=== PATIENT | female | born 1950 | race Caucasian/White ===

== ENCOUNTER 2020-12-09 08:00 | Outpatient (CLI) | payer MEDICARE, MEDICAID ==
[2020-12-17] MEDS ORDERED: LIDOcaine 2% 5ml jelly ONE (09:30)
[2020-12-17 10:58] LABS: BASOPHILS % (AUTO) 0.6 % (0-1); EOSINOPHILS # (AUTO) 0.1 X10'3 (0-0.9); EOSINOPHILS % (AUTO) 0.9 % (0-6); HEMATOCRIT 37.2 % (35.0-45.0); HEMOGLOBIN 12.3 g/dl (12.0-16.0); LYMPHOCYTES # (AUTO) 1.9 X10'3 (1.1-4.8); LYMPHOCYTES % (AUTO) 23.9 % (21-51); MEAN CORPUSCULAR HEMOGLOBIN 27.9 PG (27.0-31.0); MEAN CORPUSCULAR HGB CONC 33.1 g/dL (33.0-36.5); MEAN CORPUSCULAR VOLUME 84.3 FL (78-98); MEAN PLATELET VOLUME 7.2 FL (7.4-10.4); MONOCYTES # (AUTO) 0.5 X10'3 (0-0.9); MONOCYTES % (AUTO) 6.9 % (2-12); NEUTROPHILS # (AUTO) 5.4 X10'3 (1.8-7.7); NEUTROPHILS % (AUTO) 67.7 % (42-75); PLATELET COUNT 256 X10'3 (140-440); RED BLOOD COUNT 4.42 X10'6 (4.20-5.60); WHITE BLOOD COUNT 7.9 X10'3 (4.5-11.0)
[2020-12-17 11:09] LABS: HEMOGLOBIN A1C 6.7 % (4.5-6.2)
[2020-12-17 11:10] LABS: ALANINE AMINOTRANSFERASE 23 U/L (12-78); ALBUMIN 3.4 G/DL (3.4-5.0); ALBUMIN/GLOBULIN RATIO 0.7 (1.1-1.5); ALKALINE PHOSPHATASE 98 IU/L (46-116); ANION GAP 7 (8-16); ASPARTATE AMINO TRANSFERASE 23 U/L (10-37); BILIRUBIN,TOTAL 0.6 MG/DL (0.1-1.0); BLOOD UREA NITROGEN 35 MG/DL (7-18); BUN/CREATININE RATIO 26.7 (6.6-38.0); C-REACTIVE PROTEIN 2.88 MG/DL (0.0-0.5); CALCIUM 9.1 MG/DL (8.5-10.1); CHLORIDE 104 MMOL/L (99-107); CREATININE 1.31 MG/DL (0.40-0.90); GLUCOSE 123 MG/DL (70-104); POTASSIUM 5.5 MMOL/L (3.5-5.1); SODIUM 136 MMOL/L (135-145); TOTAL CARBON DIOXIDE 24.8 MMOL/L (24-32); TOTAL PROTEIN 8.1 G/DL (6.4-8.2); eGFR 40 ML/MIN
[2020-12-24] MEDS ORDERED: LIDOcaine 2% 5ml jelly ONE (08:47)
[2021-01-02] MEDS ORDERED: LIDOcaine 2% 5ml jelly ONE (09:46)
== END 2020-12-27 23:59 | disposition home or self-care (01) ==
LOC: WOUND CARE 08:00 → EDSTATUS 12-17 08:40 → WOUND CARE 12-27 23:59
PROVIDERS: ATTEND Nurse Practitioner
DX: E11.621 Type 2 diabetes mellitus with foot ulcer (principal); L89.893 Pressure ulcer of other site, stage 3; L97.515 Non-pressure chronic ulcer of other part of right foot with muscle involvement without evidence of necrosis; L97.521 Non-pressure chronic ulcer of other part of left foot limited to breakdown of skin; S91.105A Unspecified open wound of left lesser toe(s) without damage to nail, initial encounter; E11.65 Type 2 diabetes mellitus with hyperglycemia; L84 Corns and callosities; I10 Essential (primary) hypertension; E78.5 Hyperlipidemia, unspecified; M19.90 Unspecified osteoarthritis, unspecified site; E11.39 Type 2 diabetes mellitus with other diabetic ophthalmic complication; E11.36 Type 2 diabetes mellitus with diabetic cataract; H42 Glaucoma in diseases classified elsewhere; K21.9 Gastro-esophageal reflux disease without esophagitis; I87.2 Venous insufficiency (chronic) (peripheral); M10.9 Gout, unspecified; F32.9 Major depressive disorder, single episode, unspecified; Z86.718 Personal history of other venous thrombosis and embolism; Z87.891 Personal history of nicotine dependence; X58.XXXA Exposure to other specified factors, initial encounter; Y93.89 Activity, other specified; Y92.89 Other specified places as the place of occurrence of the external cause; Y99.8 Other external cause status
CPT/HCPCS: 11043; 15275; 36415; 73630; 80053; 82948; 83036; 85025; 85651; 86140; 87070; 87075; 87077; 87186; 97597; Q4196

== ENCOUNTER 2020-12-31 17:25 | Outpatient (CLI) | payer MEDICARE, MEDICAID ==
[2020-12-31 18:11] LABS: ALANINE AMINOTRANSFERASE 24 U/L (12-78); ALBUMIN 3.1 G/DL (3.4-5.0); ALBUMIN/GLOBULIN RATIO 0.8 (1.1-1.5); ALKALINE PHOSPHATASE 92 IU/L (46-116); ANION GAP 10 (8-16); ASPARTATE AMINO TRANSFERASE 23 U/L (10-37); BILIRUBIN,TOTAL 0.4 MG/DL (0.1-1.0); BLOOD UREA NITROGEN 36 MG/DL (7-18); BUN/CREATININE RATIO 27.7 (6.6-38.0); CHLORIDE 110 MMOL/L (99-107); GLUCOSE 81 MG/DL (70-104); POTASSIUM 5.8 MMOL/L (3.5-5.1); SODIUM 143 MMOL/L (135-145); TOTAL CARBON DIOXIDE 22.6 MMOL/L (24-32); eGFR 41 ML/MIN
== END 2020-12-31 23:59 | disposition home or self-care (01) ==
LOC: LAB SPEC 17:25
PROVIDERS: ATTEND Family Medicine
DX: N17.9 Acute kidney failure, unspecified (principal); E87.8 Other disorders of electrolyte and fluid balance, not elsewhere classified
CPT/HCPCS: 36415; 80053

== ENCOUNTER 2021-01-09 13:33 | Outpatient (CLI) | payer MEDICARE, MEDICAID ==
[2021-01-09] MEDS ORDERED: LIDOcaine 2% 5ml jelly ONE (14:15)
== END 2021-02-05 23:59 | disposition home or self-care (01) ==
LOC: WOUND CARE 13:33
PROVIDERS: ATTEND Nurse Practitioner
DX: E11.621 Type 2 diabetes mellitus with foot ulcer (principal); L89.893 Pressure ulcer of other site, stage 3; L89.890 Pressure ulcer of other site, unstageable; L97.512 Non-pressure chronic ulcer of other part of right foot with fat layer exposed; E11.65 Type 2 diabetes mellitus with hyperglycemia; E11.36 Type 2 diabetes mellitus with diabetic cataract; I10 Essential (primary) hypertension; I87.2 Venous insufficiency (chronic) (peripheral); E78.5 Hyperlipidemia, unspecified; H42 Glaucoma in diseases classified elsewhere; M19.90 Unspecified osteoarthritis, unspecified site; K21.9 Gastro-esophageal reflux disease without esophagitis; M10.9 Gout, unspecified; F32.9 Major depressive disorder, single episode, unspecified; Z86.718 Personal history of other venous thrombosis and embolism; Z90.710 Acquired absence of both cervix and uterus
CPT/HCPCS: 11042; 15275; Q4160

== ENCOUNTER 2021-01-29 18:49 | Outpatient (CLI) | payer MEDICARE, MEDICAID ==
[2021-01-29 19:31] LABS: BASOPHILS % (AUTO) 0.2 % (0-1); EOSINOPHILS % (AUTO) 0 % (0-6); HEMATOCRIT 36.3 % (35.0-45.0); HEMOGLOBIN 11.5 g/dl (12.0-16.0); LYMPHOCYTES % (AUTO) 10.1 % (21-51); MEAN CORPUSCULAR HEMOGLOBIN 27.1 PG (27.0-31.0); MEAN CORPUSCULAR HGB CONC 31.7 g/dL (33.0-36.5); MEAN CORPUSCULAR VOLUME 85.3 FL (78-98); MEAN PLATELET VOLUME 7.2 FL (7.4-10.4); MONOCYTES # (AUTO) 0.2 X10'3 (0-0.9); MONOCYTES % (AUTO) 2.1 % (2-12); NEUTROPHILS # (AUTO) 9.1 X10'3 (1.8-7.7); NEUTROPHILS % (AUTO) 87.6 % (42-75); PLATELET COUNT 401 X10'3 (140-440); RED BLOOD COUNT 4.25 X10'6 (4.20-5.60); WHITE BLOOD COUNT 10.3 X10'3 (4.5-11.0)
[2021-01-29 19:40] LABS: ALANINE AMINOTRANSFERASE 57 U/L (12-78); ALBUMIN/GLOBULIN RATIO 0.8 (1.1-1.5); ALKALINE PHOSPHATASE 125 IU/L (46-116); ANION GAP 11 (8-16); ASPARTATE AMINO TRANSFERASE 23 U/L (10-37); BILIRUBIN,TOTAL 0.3 MG/DL (0.1-1.0); BLOOD UREA NITROGEN 41 MG/DL (7-18); BUN/CREATININE RATIO 27.3 (6.6-38.0); C-REACTIVE PROTEIN 1.38 MG/DL (0.0-0.5); CALCIUM 9.3 MG/DL (8.5-10.1); CHLORIDE 106 MMOL/L (99-107); GLUCOSE 298 MG/DL (70-104); SODIUM 140 MMOL/L (135-145); TOTAL CARBON DIOXIDE 23.2 MMOL/L (24-32); VANCOMYCIN,TROUGH 17.2 UG/ML (6.0-14.0); eGFR 35 ML/MIN
== END 2021-01-29 23:59 | disposition home or self-care (01) ==
LOC: LAB 18:49
PROVIDERS: ATTEND Family Medicine
DX: A49.9 Bacterial infection, unspecified (principal)
CPT/HCPCS: 36415; 80053; 80202; 85025; 85651; 86140

== ENCOUNTER 2024-03-31 08:50 | Day surgery (SDC) | payer MEDICARE, MEDICAID ==
[2024-03-24 15:34] LABS: BILIRUBIN,URINE NEGATIVE (Neg); GLUCOSE, URINE 500 mg/dl (Neg); KETONES,URINE NEGATIVE (Neg); LEUKOCYTE ESTERASE ,URINE NEGATIVE (Neg); NITRITES, URINE NEGATIVE (Neg); OCCULT BLOOD,URINE NEGATIVE (Neg); PH,URINE 5.5 (4.8-8.0); PROTEIN,URINE NEGATIVE (Neg); UROBILINOGEN,URINE 0.2 E.U/dL (0.2-1.0)
[2024-03-24 15:37] LABS: BASOPHILS % (AUTO) 0.6 % (0-1); EOSINOPHILS # (AUTO) 0.2 X10'3 (0-0.9); EOSINOPHILS % (AUTO) 2.1 % (0-6); MEAN CORPUSCULAR HEMOGLOBIN 29.6 PG (27.0-31.0); MEAN CORPUSCULAR HGB CONC 32.7 g/dL (33.0-36.5); MEAN CORPUSCULAR VOLUME 90.4 FL (78-98); MEAN PLATELET VOLUME 7.3 FL (7.4-10.4); MONOCYTES # (AUTO) 0.5 X10'3 (0-0.9); MONOCYTES % (AUTO) 7.5 % (2-12); NEUTROPHILS # (AUTO) 4.4 X10'3 (1.8-7.7); NEUTROPHILS % (AUTO) 61.8 % (42-75); PRE OP HEMATOCRIT 37.9 % (35.0-45.0); PRE OP HEMOGLOBIN 12.4 g/dL (12.0-16.0); PRE OP PLATELET COUNT 326 X10'3 (140-440); PRE OP WHITE BLOOD COUNT 7.1 10'3 (4.8-10.8); RED BLOOD COUNT 4.19 X10'6 (4.20-5.60); RED CELL DISTRIBUTION WIDTH 14.8 % (11.5-14.5)
[2024-03-24 15:39] LABS: UA COLLECTION TYPE CLN CATCH MIDSTREAM
[2024-03-24 15:40] LABS: CLARITY,URINE Slightly Cloudy (Clear); COLOR,URINE AMBER (Yellow)
[2024-03-24 15:41] LABS: BACTERIA,URINE RARE /HPF (Neg); MUCUS STRANDS MODERATE /LPF (Neg); RBC,URINE 0-2 /HPF (0-2); SQUAMOUS EPITHELIAL CELL,UR FEW /LPF (FEW); WBC,URINE 0-4 /HPF (0-4)
[2024-03-24 15:42] LABS: HYALINE CASTS 0-3 /LPF (NEGATIVE)
[2024-03-24 15:46] LABS: ALBUMIN 3.2 G/DL (3.4-5.0); ALBUMIN/GLOBULIN RATIO 0.6 (1.1-1.5); ALKALINE PHOSPHATASE 100 IU/L (46-116); BLOOD UREA NITROGEN 51 MG/DL (7-18); BUN/CREATININE RATIO 26.3 (10.0-20.0); CALCIUM 9.8 MG/DL (8.5-10.1); CHLORIDE 100 MMOL/L (99-107); CREATININE 1.94 MG/DL (0.40-0.90); PRE OP ALT 26 U/L (30-65); PRE OP ANION GAP 10 (8-16); PRE OP AST 31 U/L (10-37); PRE OP BILIRUB, TOTAL 0.6 MG/DL (0.0-1.0); PRE OP POTASSIUM 5.1 MMOL/L (3.4-5.1); PRE OP SODIUM 134 MMOL/L (135-145); TOTAL CARBON DIOXIDE 24.4 MMOL/L (24-32); TOTAL PROTEIN 8.3 G/DL (6.4-8.2); eGFR 25 ML/MIN
[2024-03-24 15:49] LABS: PRE OP GLUCOSE 208 MG/DL (70-104)
[~2024-03-31] VITALS: Ht 154.9 cm; Wt 145.6 kg
[2024-03-31] VITALS (16 sets, daily range): BP systolic 112–136; BP diastolic 53–69; PULSE 59–68; RESP 7–18; TEMP 97.4; O2SAT 92–100
[2024-03-31] MEDS: DOCUMENT DATE & TIME OF BETA-BLOCKER PO ONE (06:00)
[~2024-03-31 08:50] MED LIST: ALBU18HF2 PO; AMOX-580 PO; ASPI-1265 PO; ATOR20TA66 PO; CETI10TA19 PO; CHOL20002 PO; CYCL-1 PO; EMPA10TA PO; FLUO40CA PO; FURO20TA4 PO; GABA300T28; GLIM4TAB7 PO; HYDR50TA65 PO; LEVO50TA8 PO; LISI40TA13 PO; METO25TA6 PO; NYST15CR36 TOP; TRAM50TA2 PO; VITA100T PO; [UNRECOGNIZED DRUG - OTHER]; vancomycin/NS 1 GM ADD-VANTAGE 250 ML IV ONE
[2024-03-31] MEDS: famotidine 20mg tablet PO ONE (10:04)
[2024-03-31] MEDS: vancomycin/NS 1 GM in NS 250 ML IV ONE (10:05)
[2024-03-31] MEDS: ringers solution, lacted 1,000 ML IV SCH (10:05)
[2024-03-31] MEDS ORDERED: sevoflurane 250ml liquid IH ONE (12:04)
[2024-03-31] MEDS ORDERED: fentaNYL/PF 50MCG/1 ML 2ML syringe ONE (12:08)
[2024-03-31] MEDS ORDERED: midazolam 1 mg/ML 2ml injection ONE (12:09)
[2024-03-31] MEDS ORDERED: ROPIVAcaine 0.5% (5mg/ml) 30ml vial ONE (12:16)
[2024-03-31] MEDS: povidone-iodine 10% ointment 1 APPLIC APPLIC TP ONE (13:15)
[2024-03-31] MEDS: vancomycin 1,000mg inj ONE (13:15)
[2024-03-31] MEDS ORDERED: dexamethasone sod phosphate 4mg/ml inj. ONE (13:17)
[2024-03-31] MEDS ORDERED: propofol inj 20 ML IV ONE (13:17)
[2024-03-31] MEDS ORDERED: ondansetron/PF 4mg/2ml inj ONE (13:17)
[2024-03-31] MEDS ORDERED: morphine 2 MG/ML inj. syringe IV PRN (14:25)
[2024-03-31] MEDS ORDERED: ondansetron/PF 4mg/2ml inj IV PRN (14:25)
[2024-03-31] MEDS ORDERED: proCHLORperazine 10 MG/2 ml inj IV PRN (14:25)
[2024-03-31] MEDS ORDERED: morphine 4 MG/ML inj SYRINge IV PRN (14:25)
[2024-03-31] MEDS ORDERED: meperidine/PF 25mg/ml syringe IV PRN ×2 (14:25)
[2024-03-31] MEDS ORDERED: ringers solution, lacted 1,000 ML IV SCH (14:25)
[2024-03-31] MEDS: meperidine/PF 25mg/ml syringe IV PRN (14:40)
[2024-03-31] MEDS: HYDROcodone/acetaminophen 10/325mg tab PO ONE (16:00)
== END 2024-03-31 16:21 | disposition home or self-care (01) ==
LOC: PAS 08:50
PROVIDERS: ATTEND Podiatrist Foot & Ankle Surgery
DX: M86.8X7 Other osteomyelitis, ankle and foot (principal); G89.18 Other acute postprocedural pain; I12.9 Hypertensive chronic kidney disease with stage 1 through stage 4 chronic kidney disease, or unspecified chronic kidney disease; E11.40 Type 2 diabetes mellitus with diabetic neuropathy, unspecified; N18.30 Chronic kidney disease, stage 3 unspecified; E66.01 Morbid (severe) obesity due to excess calories; E78.5 Hyperlipidemia, unspecified; I48.91 Unspecified atrial fibrillation; G47.33 Obstructive sleep apnea (adult) (pediatric); F41.9 Anxiety disorder, unspecified; F32.A Depression, unspecified; Z85.42 Personal history of malignant neoplasm of other parts of uterus; Z90.49 Acquired absence of other specified parts of digestive tract; Z90.710 Acquired absence of both cervix and uterus; Z90.89 Acquired absence of other organs; Z96.642 Presence of left artificial hip joint; Z96.653 Presence of artificial knee joint, bilateral; Z98.890 Other specified postprocedural states; Z68.44 Body mass index [BMI] 60.0-69.9, adult; Z88.6 Allergy status to analgesic agent; Z88.1 Allergy status to other antibiotic agents; Z88.8 Allergy status to other drugs, medicaments and biological substances
CPT/HCPCS: 28805; 36415; 64445; 64447; 71046; 73620; 80053; 81001; 82948; 85025; A4615; A4618; A6222; A6223; A6253; A6402; A7000; J1100; J2175; J2250; J2405; J2704; J2795; J3010; J3370; J7030; J7120; Z7506; Z7508; Z7512; Z7610; 76000; 88307; A6449

== ENCOUNTER 2025-02-26 16:49 | Inpatient (IN) | payer MEDICARE, MEDICAID ==
[~2025-02-26] VITALS: Ht 157.5 cm; Wt 133.2 kg
[~2025-02-26 16:49] MED LIST changes: +NYST15CR TOP; -NYST15CR36 TOP; -vancomycin/NS 1 GM ADD-VANTAGE 250 ML IV ONE
[2025-02-26] MEDS ORDERED: vancomycin inj 1,000 MG in normal saline 250ml IV soln 250 ML IV ONE (21:20)
--- NOTE | 2025-02-26 21:20 | Physician Documentation ---
History of Present Illness ~ Chief Complaint: Wound Stated Complaint: "I WAS SENT BY THE WOUND CLINIC " Time Seen by MD: 21:06 HPI Patient presents to the emergency room with worsening left foot wound. She was recently placed on doxycycline and finished her last dose last night with no improvement. No fevers. She was seen at wound care clinic today by Dr. Leroy who recommended she come to the emergency room to be admitted for IV antibiotics. She reports that Dr. Mai has scheduled her to have an additional amputation on affected leg later this week. Medication Reconciliation Allergies: Coded Allergies: Cephalosporins (Verified Allergy, Unknown, 03/30/24) cephalexin (Verified Allergy, Unknown, 03/30/24) fluticasone (Verified Allergy, Unknown, 03/30/24) ibuprofen (Verified Allergy, Unknown, REDUCED KIDNEY FX, 12/17/20) Scheduled Amox Tr/Potassium Clavulanate 875/125 MG (Augmentin 875/125 MG), 1 TAB PO BID, (Reported) Aspirin (Aspirin), 1 TAB PO DAILY, (Reported) Atorvastatin Calcium (Atorvastatin Calcium), 1 TAB PO DAILY, (Reported) Cetirizine HCl (Cetirizine HCl), 1 TAB PO DAILY, (Reported) Cholecalciferol (Vitamin D3) (Vitamin D3), 1 CAP PO DAILY, (Reported) Cyclobenzaprine* (Cyclobenzaprine*), 1 TAB PO TID, (Reported) Empagliflozin (Jardiance), 1 TAB PO QAM, (Reported) Fluoxetine Hcl (Fluoxetine Hcl), 1 CAP PO DAILY, (Reported) Furosemide (Furosemide), 1 TAB PO BID, (Reported) Glimepiride* (Amaryl*), 1 TAB PO BID, (Reported) Hydroxyzine HCl (Hydroxyzine HCl), 1 TAB PO DAILY, (Reported) Levothyroxine Sodium (Levothyroxine Sodium), 1 TAB PO DAILY, (Reported) Lisinopril* (Lisinopril*), 1 TAB PO DAILY, (Reported) Metoprolol Tartrate (Metoprolol Tartrate), 1 TAB PO BID, (Reported) Nystatin (Nystatin), 1 APPLIC TOP BID, (Reported) Vitamin B Complex 100 No.2 (B-100 Complex), PO DAILY, (Reported) Scheduled PRN Albuterol Sulfate (Ventolin Hfa), 2 PUFFS PO Q6H PRN for wheezing, (Reported) Tramadol Hcl (Tramadol Hcl), 0.5-1 TAB PO BID PRN for pain, (Reported) Miscellaneous Medications Gabapentin (Gabapentin ER), (Reported) [Activate], (Reported) Review of Systems ROS All review of systems negative except as per HPI Physical Exam Vital Signs: Temperature: 98.4, Source: Oral, Heart Rate: 70, Respiratory Rate: 14, BP: 132/63, Pulse Oximetry: 100, Weight: 133.180 Oxygen Flow Rate: 0 Physical Exam General: Patient is awake, alert, oriented x4 in no acute distress Head: Normocephalic and atraumatic. Eyes: Conjunctival normal. EOMI. PERRL. ENT: Mucous membranes moist. Neck: Supple, trachea is midline. Chest: Clear to auscultation bilaterally without rales, rhonchi, or wheezes. There is no accessory muscle use or retractions. Cardiac: RRR without murmurs, gallops, or rubs. Abd: Soft, nondistended, nontender, with normoactive bowel sounds. No guarding, rebound, or rigidity. Extremities: Normal strength. Normal range of motion. Left foot bandage clean dry and intact Progress Results/Orders Results/Orders Orders - FELIPE JUAREZ MD Hospitalist (02/26/25 21:20) Fill Out Med Reconciliation (02/26/25 21:20) Urinalysis, Cult If Indicated (02/26/25 21:26) Culture Blood (02/26/25 21:26) Chest,Single View (02/26/25 21:32) Page Hospitalist (02/26/25 21:26) Fill Out Med Reconciliation (02/26/25 21:26) Completed Orders - FELIPE JUAREZ MD Electrocardiogram (02/26/25 21:26) Cbc/Diff (02/26/25 21:26) MG (02/26/25 21:26) Chest,Single View (02/26/25 21:32) Procalcitonin (02/26/25 21:26) BMP (02/26/25 21:26) Lacticsepsis (02/26/25 21:26) Vancomycin/Ns 1 Gm Add-[place] (Vancomyc (02/26/25 21:34) PBNP (02/26/25 21:38) Hgb A1c (02/26/25 21:38) Medications Received in ER Medications (Trade) Dose Ordered Sig/Chery Route PRN Reason Start Time Stop Time Status Last Admin Dose Admin Vancomycin HCl 250 ml @ 166 mls/hr ONCE ONCE IV 02/26/25 21:34 02/26/25 22:50 DC 02/26/25 21:59 166 MLS/HR Vital Signs 02/26/25 02/26/25 16:50 20:08 Temp 97.7 98.4 Pulse 89 70 Resp 16 14 B/P (MAP) 153/53 132/63 (86) Pulse Ox 97 100 O2 Flow Rate 0 0 Laboratory Tests Test 02/26/25 21:38 White Blood Count 10.4 Red Blood Count 4.10 L Hemoglobin 12.1 Hematocrit 36.7 Mean Corpuscular Volume 89.5 Mean Corpuscular Hemoglobin 29.5 Mean Corpuscular Hemoglobin Concent 32.9 L Red Cell Distribution Width 15.3 H Platelet Count 310 Mean Platelet Volume 7.0 L Neutrophils (%) (Auto) 68.9 Lymphocytes (%) (Auto) 21.2 Monocytes (%) (Auto) 8.6 Eosinophils (%) (Auto) 1.0 Basophils (%) (Auto) 0.3 Neutrophils # (Auto) 7.1 Lymphocytes # (Auto) 2.2 Monocytes # (Auto) 0.9 Eosinophils # (Auto) 0.1 Basophils # (Auto) 0.0 CBC Comment Erythrocyte Sedimentation Rate 77 H Sodium Level 140 Potassium Level 4.8 Chloride Level 104 Carbon Dioxide Level 26.4 Anion Gap 10 Blood Urea Nitrogen 36 H Creatinine 1.55 H Estimated GFR/1.73 m2 33 BUN/Creatinine Ratio 23.2 H Glucose Level 50 L Hemoglobin A1c 5.5 Lactic Acid Level 0.9 Calcium Level 9.6 Magnesium Level 1.6 Pro-B-Type Natriuretic Peptide 1026 H Albumin 3.1 L Procalcitonin < 0.05 Chemistry Comments Medical Decision Making Findings Patient presented to the emergency room for worsening infection to her left foot sent by wound care for IV antibiotics. IV antibiotics initiated. Patient did bring a culture with her that showed wound culture sensitive to vancomycin. Patient blood pressure is reassuring. Departure Admitted to Inpatient Unit: yes, to hospitalist Impression: Primary Impression: Wound Additional Impression: Osteomyelitis Condition: Guarded Referrals: NO PRIMARY CARE PROVIDER (PCP) Signature Scribe Signature: No scribe Attestation: The note accurately reflects work and decisions made by me.Felipe Juarez MD 02/26/25 21:19 FELIPE JUAREZ MD Feb 26, 2025 21:20
--- NOTE | 2025-02-26 21:40 | ELECTROCARDIOGRAPH REPORT ---
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 Gavin Lang Measurements Intervals [place] Rate: 80 P: -4 ME: 167 QRS: -12 QRSD: 94 T: 25 QT: 358 QTc: 413 Interpretive Statements Atrial-paced complexes Low voltage, precordial leads Consider anterior infarct Baseline wander in lead(s) I,II,aVR,aVF,V3,V4,V5,V6 Electronically Signed On 02-28-2025 9:27:[address] Gavin Lang Please click the below link to view image of tracing.
[2025-02-26 21:45] LABS: BASOPHILS % (AUTO) 0.3 % (0-1); EOSINOPHILS # (AUTO) 0.1 X10'3 (0-0.9); HEMATOCRIT 36.7 % (35.0-45.0); HEMOGLOBIN 12.1 g/dl (12.0-16.0); LYMPHOCYTES # (AUTO) 2.2 X10'3 (1.1-4.8); LYMPHOCYTES % (AUTO) 21.2 % (21-51); MEAN CORPUSCULAR HEMOGLOBIN 29.5 PG (27.0-31.0); MEAN CORPUSCULAR HGB CONC 32.9 g/dL (33.0-36.5); MEAN CORPUSCULAR VOLUME 89.5 FL (78-98); MONOCYTES # (AUTO) 0.9 X10'3 (0-0.9); MONOCYTES % (AUTO) 8.6 % (2-12); NEUTROPHILS # (AUTO) 7.1 X10'3 (1.8-7.7); NEUTROPHILS % (AUTO) 68.9 % (42-75); PLATELET COUNT 310 X10'3 (140-440); RED CELL DISTRIBUTION WIDTH 15.3 % (11.5-14.5); WHITE BLOOD COUNT 10.4 X10'3 (4.5-11.0)
--- NOTE | 2025-02-26 21:47 | RADIOLOGY REPORT ---
CHEST RADIOGRAPH Indication: SEPSIS Technique: Single frontal view of the chest was obtained Comparison: None FINDINGS: Patient has had surgery involving the right shoulder. Heart size is normal there are slightly increa sed peripheral markings probably due to patient's body habitus. No focal abnormalities are seen . IMPRESSION: 1. No acute findings. Slightly prominent purple markings probably related to patient's body habitus.
[2025-02-26] MEDS ORDERED: magnesium sulf-water 2g/50mL 50 ML IV PRN (21:55)
[2025-02-26] MEDS ORDERED: magnesium hydroxide 30ml (MOM) UD suspension PO PRN (21:55)
[2025-02-26] MEDS ORDERED: potassium Cl 20 mEq SR tablet PO PRN ×2 (21:55)
[2025-02-26] MEDS ORDERED: acetaminophen 325mg tablet PO PRN (21:55)
[2025-02-26] MEDS ORDERED: potassium Cl 40MEQ/1/2NS 520ml 520 ML IV PRN (21:55)
[2025-02-26] MEDS ORDERED: ondansetron/PF 4mg/2ml inj IV PRN (21:55)
[2025-02-26] MEDS ORDERED: metoclopramide 5 mg/ml inj IV PRN (21:55)
[2025-02-26] MEDS ORDERED: morphine 2 MG/ML inj. syringe IV PRN ×2 (21:55)
[2025-02-26] MEDS ORDERED: bisacodyl 10mg suppository rectal RC PRN (21:55)
[2025-02-26] MEDS ORDERED: HYDROmorphone inj. 0.5 MG/0.5 ML DISP.SYRIN IV PRN (21:55)
[2025-02-26] MEDS ORDERED: magnesium Cl slow-release 64mg tablet PO PRN (21:55)
[2025-02-26] MEDS ORDERED: magnesium sulf-water 4G/100mL 100 ML IV PRN (21:55)
--- NOTE | 2025-02-26 21:57 | HISTORY AND PHYSICAL-Residence ---
History & Physical Providers to CC Resident Creating Document: ANTIONETTE VERDUGO, RES ~ History of Present Illness Reason for Admit\Complaint: Failed outpatient management of wound care History of Present Illness This is a 74 year old morbidly obese female with a history of hypertension, diabetes, paroxysmal AFib not on blood thinners, CKD stage 3, obstructive sleep apnea, left foot metatarsal amputation last year was sent to the ED from the wound care clinic for the management of left foot wound after outpatient treatment failure. Patient mentions that she has pain in the left foot since the last three days and noticed blood pus filled discharge coming out of her chronic wound on the left foot. The wound is about 2 x 2 x 1 cm on the dorsum of the foot in the left upper corner with yellowish pus draining from it. However there was no foul smell and no fever. Patient was prescribed doxycycline and has been taking it since the last three months. However the wound cultures taken four days ago grew Enterococcus faecalis, Corynebacterium, nonhemolytic Streptococcus resistant to erythromycin and sensitive to ampicillin, penicillin, rifampin, vancomycin. Patient was seen by Dr. Leroy for IV antibiotics after failure of outpatient antibiotics. She was also scheduled for amputation of the left foot due to suspected osteomyelitis on this by Dr. Jade. Arterial Doppler done recently at Wound Care Clinic showed good flow and she denies claudication symptoms. Allergies: Coded Allergies: Cephalosporins (Verified Allergy, Unknown, 03/30/24) cephalexin (Verified Allergy, Unknown, 03/30/24) fluticasone (Verified Allergy, Unknown, 03/30/24) ibuprofen (Verified Allergy, Unknown, REDUCED KIDNEY FX, 12/17/20) Home Medications Home Medications Active Reported Vitamin D3 (Cholecalciferol (Vitamin D3)) 50 Mcg (2000 Unit) Capsule 1 Cap PO DAILY Nystatin 100,000 Unit/Gram Cream.gm. 1 Applic TOP BID Atorvastatin Calcium 20 Mg Tablet 1 Tab PO DAILY Tramadol Hcl (Tramadol HCl) 50 Mg Tablet 0.5-1 Tab PO BID PRN Cyclobenzaprine* (Cyclobenzaprine HCl) 10 Mg Tablet 1 Tab PO TID Gabapentin ER (Gabapentin) 300 Mg Tab.er.24h Hydroxyzine HCl 50 Mg Tablet 1 Tab PO DAILY Amaryl* (Glimepiride) 4 Mg Tablet 1 Tab PO BID Ventolin Hfa (Albuterol Sulfate) 90 Mcg Hfa.aer.ad 2 Puffs PO Q6H PRN Levothyroxine Sodium 50 Mcg Tablet 1 Tab PO DAILY Metoprolol Tartrate 25 Mg Tablet 1 Tab PO BID Lisinopril* (Lisinopril) 40 Mg Tablet 1 Tab PO DAILY Furosemide 20 Mg Tablet 1 Tab PO BID Jardiance (Empagliflozin) 10 Mg Tablet 1 Tab PO QAM Fluoxetine Hcl 40 Mg Capsule 1 Cap PO DAILY Cetirizine HCl 10 Mg Tab.chew 1 Tab PO DAILY 30 Days Aspirin 81 Mg Tab.chew 1 Tab PO DAILY 30 Days B-100 Complex (Vitamin B Complex 100 No.2) 100 Mg Tablet.sa PO DAILY 30 Days [Activate] Augmentin 875/125 MG (Amoxicillin/Clavulanate Potassium) 875 Mg-125 Mg Tablet 1 Tab PO BID Past Medical History Past Medical History hypertension, diabetes, paroxysmal AFib not on blood thinners, CKD stage 3, obstructive sleep apnea, left foot metatarsal amputation Past Surgical History Surgical History Comment Left foot metatarsal amputation Past Social History Social History Comment Smoked about one pack per week for 10 years but quit many years, denies alcohol or drug use ROS ROS Reviewed and negative except for the pertinent positives in HPI Exam Vitals: Vital Signs Date Time Temp Pulse Resp B/P (MAP) Pulse Ox O2 Delivery O2 Flow Rate FiO2 02/26/25 20:08 98.4 70 14 132/63 (86) 100 0 General: General: Morbidly obese elderly woman. Awake , alert, and oriented x4, resting comfortably in the bed, in no acute distress . HEENT: Atraumatic, normocephalic, EOMI, anicteric sclera B; pink conjunctiva; PERRLA, normal oropharynx, moist oral and nasal mucosa. Tympanic membrane , nose , throat clear. Neck: Trachea midline. Supple, full range of motion, no JVD, bruit , hepatojugular reflex , lymphadenopathy or masses, or other lesions Cardiac: Regular rhythm, regular rate no murmurs, rubs, or gallops. Normal S1 and S2, no S3 noticed. PMI is normal. Respiratory: Equal breath sounds bilaterally, no tachypnea; lungs clear to auscultation bilaterally, no wheezing ,rub or rales, or crackles. Chest wall is symmetric and without deformity. No signs of trauma. Chest wall is nontender. No signs of respiratory distress. Resonance is normal upon percussion bilaterally. Gastrointestinal: Abdomen symmetric, non-distended, soft, non-tender, normal bowel sounds x4 quadrant, normoactive, no hepatosplenomegaly , no masses , no bruit, no flank pain bilaterally. No voluntary guarding, rebound, or rigidity. No tenderness to percussion. No pulsatile masses. Equal femoral pulses. No Garcia's sign or McBurney point tenderness. Back; no CVA tenderness bilaterally, no deformities. Neck and back are without deformity as well. No tenderness noted on palpation of the spinous processes. Spinous processes are midline. Cervical, thoracic, and lumbar paraspinal muscles are not tender and are without spasm. : normal external genitalia, without lesions, swelling, masses or tenderness. Musculoskeletal: Extremities, normal range of motion, non-tender, muscle strength 5/5 x 4. Negative Homans signs bilaterally on lower extremity. Distal pulses full symmetrical, no clubbing, cyanosis , edema. Neurological: Speech is clear, alert, and oriented x 4. No motor or sensory deficit, deep tendon reflexes normal, cerebellar intact. Cranial nerves II-XII intact. Psych: Alert and or appropriate, normal affect. Vascular: Good distal pulses, which are equal x4; capillary refill less than 2 seconds. Skin: 2 x 2 x 1 cm wound in the left upper corner of the left foot with pus draining with no significant erythema surrounding. Warm, dry, no pallor, no rash or petechiae. Advance Care Planning Advanced Care plannin - 30 Minutes (I spent a total of 17 minutes on reviewing various resuscitative measures/ ACP with the patient at the time of admission. The patient has decided on a DNI code status) Additional Plan Nonhealing wound in the dorsum of left foot Possible osteomyelitis of the left foot Failed outpatient antibiotic management Cultures positive for Enterococcus faecalis, Corynebacterium, nonhemolytic Streptococcus in outpatient four days ago. Failed doxycycline treatment for three months. Started on IV vancomycin, pharmacy to dose. Cultures are also sensitive to ampicillin, penicillin, rifampin, vancomycin. Patient has multiple allergies to cephalosporins, Keflex, ibuprofen, sulfa drugs. ESR elevated at 88. Lactic acid, procalcitonin, white count are within normal limits. Wound care consult and wound care management. Follow up with MRI of the left lower extremity. Patient was scheduled for left foot amputation on is week. Consult Dr. Jade in the a.m. for amputation of left foot after obtaining MRI results. History of hypertension Type 2 diabetes mellitus Obstructive sleep apnea Morbid obesity CKD stage 3 Paroxysmal AFib Continue home medications after medication reconciliation. CPAP at night, patient may benefit from weight loss. Started on hyperglycemia/hypoglycemia protocol with supplemental Humalog insulin. Follow up with the A1c. Strict hyperglycemia control. Continue monitoring kidney function. Avoid nephrotoxic drugs. Continue telemetry monitoring. Patient currently does not take any blood thinners at home even though the Will Vasc score qualifies for anticoagulation. Not starting on anticoagulation now due to the possibility of surgery soon. Discuss about benefits versus risks of anticoagulation at discharge. Code Status: DNI DVT Prophylaxis: Heparin Analgesia/Sedation: [place], morphine p.r.n. Lines/Tubes: PIV Gi Prophylaxis: None Nutrition: Carb controlled diet PT: yes Prognosis: Guarded Disposition: Admit to medical floor with telemetry monitoring Antionette Merchant MD Internal Medicine Resident PGY-1 Patient seen and examined using HIPPA complaint AV device Agree with findings as outlined above' Discussed with resident Chester Casiano MD Date of Service: Feb 26, 2025 Billing Provider: CHESTER CASIANO MD, DEEPIKA BANDI, RES Feb 26, 2025 21:57 CHESTER CASIANO MD Feb 27, 2025 01:27
[2025-02-26 21:58] LABS: ALBUMIN 3.1 G/DL (3.4-5.0); ANION GAP 10 (8-16); BLOOD UREA NITROGEN 36 MG/DL (7-18); BUN/CREATININE RATIO 23.2 (10.0-20.0); CALCIUM 9.6 MG/DL (8.5-10.1); CHLORIDE 104 MMOL/L (99-107); CREATININE 1.55 MG/DL (0.40-0.90); GLUCOSE 50 MG/DL (70-104); MAGNESIUM 1.6 MG/DL (1.5-2.4); POTASSIUM 4.8 MMOL/L (3.5-5.1); SODIUM 140 MMOL/L (135-145); TOTAL CARBON DIOXIDE 26.4 MMOL/L (24-32); eCRCL 26 ML/MIN; eGFR 33 ML/MIN
[2025-02-26] MEDS: vancomycin/NS 1 GM ADD-VANTAGE 250 ML IV ONE ×2 (21:59→23:59)
[2025-02-26 22:15] LABS: HEMOGLOBIN A1C 5.5 % (4.5-6.2)
[2025-02-26 22:18] LABS: PRO BRAIN NATRIURETIC PEPTIDE 1026 PG/ML (0-125)
[2025-02-26 22:22] LABS: APTT 28 SECONDS (22-32); INR 1.1 INR; PROTHROMBIN TIME 10.9 SECONDS (9.0-12.0)
[2025-02-26] MEDS: HYDROcodone/acetaminophen 5mg/325mg tablet PO PRN (23:42)
[2025-02-26 23:52] LABS: BILIRUBIN,URINE NEGATIVE (Neg); CLARITY,URINE CLEAR (Clear); COLOR,URINE YELLOW (Yellow); GLUCOSE, URINE NEGATIVE (Neg); KETONES,URINE NEGATIVE (Neg); LEUKOCYTE ESTERASE ,URINE NEGATIVE (Neg); NITRITES, URINE NEGATIVE (Neg); OCCULT BLOOD,URINE NEGATIVE (Neg); PH,URINE 5.5 (4.8-8.0); PROTEIN,URINE NEGATIVE (Neg); UROBILINOGEN,URINE 0.2 E.U/dL (0.2-1.0)
[2025-02-26 23:57] LABS: UA COLLECTION TYPE NON-SPECIFIED
[2025-02-27] VITALS (10 sets, daily range): BP systolic 105–144; BP diastolic 42–70; PULSE 78–86; RESP 16–22; TEMP 97.3–98.5; O2SAT 93–100
[2025-02-27] MEDS ORDERED: SEMA2PEN (00:59)
[2025-02-27] MEDS ORDERED: FLUO-167 PO (00:59)
[2025-02-27] MEDS ORDERED: CHOL500044 PO (00:59)
[2025-02-27] MEDS ORDERED: GABA-1405 PO (00:59)
[2025-02-27] MEDS ORDERED: LORA10TA7 PO (00:59)
[2025-02-27] MEDS ORDERED: LISI20TA28 PO (00:59)
[2025-02-27] MEDS ORDERED: NYSPWD TOP (00:59)
[2025-02-27] MEDS: dextrose 50%-water 50ml dispensing syringe IV ONE (05:38)
[2025-02-27] MEDS ORDERED: glucagon, human recombinant 1mg kit SUBCUT PRN (05:45)
[2025-02-27] MEDS ORDERED: DEXTROSE 15 GM of carb/4 tabs (each vial/BOTTLE has 4 tablets) PO PRN (05:45)
[2025-02-27] MEDS ORDERED: dextrose 50%-water 50ml dispensing syringe IV PRN (05:45)
[2025-02-27] MEDS: DEXTROSE 15 GM of carb/4 tabs (each vial/BOTTLE has 4 tablets) PO PRN (07:09)
[2025-02-27 07:11] LABS: BASOPHILS % (AUTO) 0.4 % (0-1); EOSINOPHILS # (AUTO) 0.1 X10'3 (0-0.9); EOSINOPHILS % (AUTO) 1.8 % (0-6); HEMATOCRIT 32.8 % (35.0-45.0); HEMOGLOBIN 10.7 g/dl (12.0-16.0); LYMPHOCYTES # (AUTO) 1.3 X10'3 (1.1-4.8); LYMPHOCYTES % (AUTO) 18.2 % (21-51); MEAN CORPUSCULAR HEMOGLOBIN 29.4 PG (27.0-31.0); MEAN CORPUSCULAR HGB CONC 32.8 g/dL (33.0-36.5); MEAN CORPUSCULAR VOLUME 89.7 FL (78-98); MONOCYTES # (AUTO) 0.7 X10'3 (0-0.9); MONOCYTES % (AUTO) 10.4 % (2-12); NEUTROPHILS # (AUTO) 4.9 X10'3 (1.8-7.7); NEUTROPHILS % (AUTO) 69.2 % (42-75); PLATELET COUNT 259 X10'3 (140-440); RED BLOOD COUNT 3.66 X10'6 (4.20-5.60); RED CELL DISTRIBUTION WIDTH 15.5 % (11.5-14.5); WHITE BLOOD COUNT 7.1 X10'3 (4.5-11.0)
[2025-02-27 07:31] LABS: ALANINE AMINOTRANSFERASE 18 U/L (12-78); ALBUMIN 2.4 G/DL (3.4-5.0); ALBUMIN/GLOBULIN RATIO 0.6 (1.1-1.5); ALKALINE PHOSPHATASE 82 IU/L (46-116); ANION GAP 7 (8-16); ASPARTATE AMINO TRANSFERASE 18 U/L (10-37); BLOOD UREA NITROGEN 36 MG/DL (7-18); BUN/CREATININE RATIO 25.2 (10.0-20.0); CALCIUM 9.1 MG/DL (8.5-10.1); CHLORIDE 107 MMOL/L (99-107); CHOL/HDL RATIO 1.6 (0.00-4.99); CHOLESTEROL 88 MG/DL (0-200); CREATININE 1.43 MG/DL (0.40-0.90); GLUCOSE 73 MG/DL (70-104); HDL CHOLESTEROL 54 MG/DL (35-60); LDL CHOLESTEROL 30 MG/DL (50-100); MAGNESIUM 1.6 MG/DL (1.5-2.4); POTASSIUM 4.7 MMOL/L (3.5-5.1); SODIUM 140 MMOL/L (135-145); TOTAL CARBON DIOXIDE 25.8 MMOL/L (24-32); TOTAL PROTEIN 6.3 G/DL (6.4-8.2); eCRCL 28 ML/MIN; eGFR 36 ML/MIN
[2025-02-27 07:32] LABS: TRIGLYCERIDES 69 MG/DL (20-135)
[2025-02-27] MEDS: K and/or MAG REPLACEMENT MC SCH (07:38)
[2025-02-27] MEDS: heparin, porcine 5000 units/ml vial SQ SCH (07:39)
[2025-02-27] MEDS: dextrose 50%-water 50ml dispensing syringe IV PRN (07:39)
[2025-02-27] MEDS: docusate sod 100mg capsule PO SCH (07:40)
[2025-02-27] MEDS ORDERED: albuterol 2.5 MG/3 ML nebule NEB PRN (10:20)
[2025-02-27] MEDS: vancomycin/NS 1 GM ADD-VANTAGE 250 ML IV SCH (10:51)
[2025-02-27] MEDS: normal saline 1000ml 1,000 ML IV SCH (10:51)
--- NOTE | 2025-02-27 11:12 | RADIOLOGY REPORT ---
CLINICAL INDICATION: 74 years old, Female; Suspected osteomyelitis. COMPARISON: None TECHNIQUE: Multiplanar, multisequence MRI of the left foot was performed without intravenous contrast . Contrast: None. INTERPRETATION: Bones: Patient is status post transmetatarsal amputation. There is T1 hypointensity in the remaining 4th and 5th metatarsals adjacent to soft tissue inflammatory changes, corresponding bone marrow edema on the fluid sensitive sequences consistent with osteomyelitis in the proximal 4th and 5th metatarsa ls. There is bone marrow edema in the cuboid without marrow replacement, which may be inflammatory. Soft tissues: Diffuse soft tissue edema in the visualized midfoot and dorsal subcutaneous tissues as well as the plantar subcutaneous tissues. Diffuse intrinsic intramuscular edema. Fatty muscle replace ment in keeping with amputation. Low signal intensity focus in the plantar surface of the forefoot wh ich may represent soft tissue gas and/or ulceration. IMPRESSION: 1. Osteomyelitis in the proximal 4th and 5th metatarsal bones. Edema in the cuboid may be related to inflammation however osteomyelitis is not excluded. 2. Possible ulceration and soft tissue gas in the plantar forefoot. Cellulitis and myositis throughou t the visualized foot.
[2025-02-27] MEDS ORDERED: gabapentin 300mg capsule PO SCH (13:00)
[2025-02-27] MEDS: dextrose 5%-1/2 normal saline 1,000 ML IV SCH (13:15)
[2025-02-27] MEDS: piperacillin/tazo 3.375gm/50ml 50 ML IV SCH (14:09)
--- NOTE | 2025-02-27 14:23 | PROGRESS NOTE- Residence ---
Progress Note - Resident Providers to CC Resident Creating Document: KERRIKERRI PEREZJAMIN, RES ~ Antibiotic Timeout Antibiotic Ordered?: Yes Subjective The patient has been evaluated at the bedside. The patient currently denies pain, nausea, vomiting, chills, fever sensation. The patient mentioned that she usually follow up [facility]. The patient endorses that she started noticing yellowish, foul-smelling secretion from her left foot were her previous amputation was done. Three months ago her nautical instrument mechanic Dr. Tovar evaluated her three months ago, as per patient at that time a callus was removed and ocampo was noted below the call us. The patient went to urgent care at [facility] Past medical history: Hypertension, diabetes, paroxysmal AFib currently not in blood thinners, CKD stage 3, obstructive sleep apnea, she currently denies any use of CPAP. Past surgical history: Left foot metatarsal amputation in Mar, 2024. Orthopedic surgery at the level of the right shoulder. Appendectomy. Hysterectomy. Bilateral knee replacement. Left hip replacement. Right rotator cuff surgery. Social history: Smoking: She quit in 1980. She used to smoke one pack a week for at least 10 years. Alcohol: She used to drink socially. Last drink on 1980. Life with roommate and currently her brother stays with her. 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 Objective Vital Signs Date Time Temp Pulse Resp B/P (MAP) Pulse Ox O2 Delivery O2 Flow Rate FiO2 02/27/25 12:48 16 02/27/25 09:10 83 02/27/25 08:00 95 Room Air 02/27/25 07:00 98.5 129/63 (85) 02/26/25 23:00 0 Physical exam: General: Morbidly obese, Well alert, well oriented, not confused, not agitated, not in acute distress, well cooperated during the physical. HEENT: Conjunctive are pink, sclerae clear, no icterus, pupil is equal in both sides, reactive to light, no ear discharge, no pharyngeal erythema or an edema. Neck: Supple, no JVD, no lymphadenopathy and thyromegaly. Chest: Equal air entry on both lungs, no additional sounds no rhonchi no wheezing at the moment. Cardiovascular: S1-S2 regular sinus rhythm and, regular rate, no gallops, no rubs, no murmurs Abdomen: No visible peristalsis, Bowel sounds present on auscultation, soft, nontender, no guarding, no rigidity Extremities: Absence of five toes in left foot, absence of 5th small toe of the right foot, no pitting edema bilaterally, capillary refill intact, peripheral pulsations are intact on both sides Central Nervous System: No focal neurological deficits, no motor or sensory weakness in all 4 extremities, could move all 4 extremities, 2+ deep tendon reflexes, negative Babinski. Skin: 2 x 2 cm wound at the level of the left upper corner of the left foot, currently with clean dressing covered. Result Diagram: 02/27/25 0635 02/27/25 0635 Coagulation Studies Laboratory Tests Test 02/26/25 22:03 Prothrombin Time 10.9 SECONDS (9.0-12.0) INR International Normalized Ratio 1.1 INR Activated Partial Thromboplast Time 28 SECONDS (22-32) Coagulation Comments Assessment Assessment 74 years old female patient came to the hospital with chief complaint of yellowish secretion from ulcer wound at the level of the left foot. Plan Plan Nonhealing wound in the dorsum of left foot Osteomyelitis, cellulitis and myositis at the level of for than 5th metatarsal bones: The patient came to the hospital with chief complaint of yellow secretion from ulcer wound at the level of the left foot. Failed outpatient antibiotic management based on doxycycline. Cultures positive for Enterococcus faecalis, Corynebacterium, nonhemolytic Streptococcus in outpatient four days ago. Failed doxycycline treatment for three months. MRI of the left foot: Impression: Osteomyelitis in the proximal 4th and 5th metatarsal bones. Edema in the cuboid may be related to inflammation however osteomyelitis is not excluded. Possible ulceration and soft tissue gas in the plantar forefoot. Cellulitis and myositis throughout the visualized foot. Dr. Jade consulted who is going to evaluate the patient, he mentioned that surgery will be performed on . Recommended involvement of infectious disease. Infectious Disease, Dr. Graham consulted. Awaiting for recommendations. Follow-up blood culture. Follow-up blood culture. Vancomycin pharmacy to dose. Zosyn t.i.d. IV. Culturelle [id number] mmu b.i.d. Diabetes mellitus: Hypoglycemia: Hemoglobin A1c 5.5. The patient has been experiencing episodes of hypoglycemia. Current diabetic medications on hold due to episodes of hypoglycemia. D5% half NS at 75 mL/hour. Hypertension: Current blood pressure within reference range. Lisinopril 20 mg daily. Paroxysmal Atrial fibrillation rate controlled: Chads Vasc score: 4: The patient was benefit from blood thinners. Currently not started blood thinners for planned surgery. Metoprolol heart rate 25 mg b.i.d. Obstructive sleep apnea Morbid obesity The patient mentioned that she was not using CPAP at her home. CPAP at night. The patient will require CPAP as an outpatient. CKD stage 3 Baseline creatinine 1.4. Current creatinine 1.43 Continue monitoring CMP. On D 5% half NS at 75 mL/hour Code Status: Limited, no intubation DVT Prophylaxis: Heparin Analgesia/Sedation: [place], morphine p.r.n. Lines/Tubes: PIV Gi Prophylaxis: None Nutrition: Regular diet. PT: yes Prognosis: Guarded Disposition: Continue medical management. Dr. Jade consulted who is going to evaluate the patient for possible amputation. Infectious Disease involved, awaiting recommendations. Jamin Perez Internal Medicine Resident [facility] Date of Service: Feb 27, 2025 Billing Provider: STACI KOCH MD,JAMIN ROSENBERG, RES Feb 27, 2025 14:23
[2025-02-27] MEDS: JUVEN Shake w/Arg/Glut/Ca2+Bmb (Juven 19.3gm) pkt 240ml PO SCH (18:09)
--- NOTE | 2025-02-27 18:39 | CONSULTATION REPORT ---
History of Present Illness Providers to [facility] Foot [facility] Ankle Consult Note ~ Reason for Admit\Admit Dx: Failed outpatient management of wound care History of Present Illness his is a 74 year old morbidly obese female with a history of hypertension, diabetes, paroxysmal AFib not on blood thinners, CKD stage 3, obstructive sleep apnea, left foot TMA last year was sent to the ED from the wound care clinic for the management of left foot wound after outpatient treatment failure. Patient mentions that she has pain in the left foot since the last three days and noticed blood pus filled discharge coming out of her chronic wound on the left foot. The wound is about 2 x 2 x 1 cm on the dorsum of the foot in the left upper corner with yellowish pus draining from it. However there was no foul smell and no fever. Patient was prescribed doxycycline and has been taking it since the last three months. However the wound cultures taken days ago grew Enterococcus faecalis, Corynebacterium, nonhemolytic Streptococcus resistant to erythromycin and sensitive to ampicillin, penicillin, rifampin, vancomycin. Patient was seen by Dr. Leroy for IV antibiotics after failure of outpatient antibiotics. Xrays in the ED were taken which shows Osteomyelitis in the proximal 4th and 5th metatarsal bones. Edema in the cuboid may be related to inflammation however osteomyelitis is not exclude Allergies: Coded Allergies: cephalexin (Verified Allergy, Unknown, FLUSH/RED IN THE FACE, 02/27/25) fluticasone (Verified Allergy, Unknown, 03/30/24) ibuprofen (Verified Allergy, Unknown, REDUCED KIDNEY FX, 12/17/20) Cephalosporins (Verified Adverse Reaction, Unknown, PT STATES MEST UP KIDNEYS, 02/27/25) Home Medications Home Medications Active Reported Fluoxetine HCl 20 Mg Capsule 1 Cap PO QAM NYSTOP powder (Nystatin) 100,000 Unit/Gram Gra TOP BID Lisinopril 20 Mg Tablet 1 Tab PO DAILY Vitamin D3 (Cholecalciferol (Vitamin D3)) 125 Mcg (5000 Unit) Tablet 1 Tab PO DAILY Gabapentin 600 Mg Tablet 1 Tab PO TID Loratadine 10 Mg Tablet 1 Tab PO DAILY Ozempic (Semaglutide) 2 Mg/0.75 Ml (8 Mg/3 Ml) Pen.injctr Atorvastatin Calcium 20 Mg Tablet 1 Tab PO DAILY Hydroxyzine HCl 50 Mg Tablet 1 Tab PO DAILY Amaryl* (Glimepiride) 4 Mg Tablet 1 Tab PO BID Ventolin Hfa (Albuterol Sulfate) 90 Mcg Hfa.aer.ad 2 Puffs PO Q6H PRN Levothyroxine Sodium 50 Mcg Tablet 1 Tab PO DAILY Metoprolol Tartrate 25 Mg Tablet 1 Tab PO BID Jardiance (Empagliflozin) 10 Mg Tablet 1 Tab PO QAM Fluoxetine Hcl 40 Mg Capsule 1 Cap PO DAILY [Activate] Physical Exam Last Vital Signs Recorded: Temperature: 97.3, Source: Oral, Heart Rate: 86, Respiratory Rate: 22, BP: 105/42, Pulse Oximetry: 93, Weight: 133.180 Extremities AnO x3, pleasant LLE: Prior TMA noted plantar wound around 0.3x0.3 down to bone with packing noted. no active drainage at this time. MRI: Osteomyelitis in the proximal 4th and 5th metatarsal bones. Edema in the cuboid may be related to inflammation however osteomyelitis is not exclude Results Diagram Lab Result Diagram: 02/27/25 0635 02/27/25 0635 Assessment/Plan Additional Plan 74F with L foot ulcer and OM to the Forefoot. Planning on Surgical intervention during admission, likely this 03/01/25. Sx planning revised TMA and possible SAPNA to the Left foot Cont abx therapy NPO 1am 03/01/25 Discussed with MIREILLE Murrieta DPM Feb 27, 2025 18:39
[2025-02-27] MEDS: lactobacillus rhamnosus 10,000 MMU CELLS/CAPSULE PO SCH (20:25)
[2025-02-27] MEDS: FLUoxetine 20mg capsule PO SCH (20:26)
[2025-02-27] MEDS: metoprolol tartrate 25mg tablet PO SCH (20:29)
[2025-02-28] VITALS (8 sets, daily range): BP systolic 110–140; BP diastolic 44–65; PULSE 82–93; RESP 12–19; TEMP 97.2–98.6; O2SAT 96–100
[2025-02-28] MEDS: piperacillin/tazo 3.375gm/50ml 50 ML IV SCH (02:12)
--- NOTE | 2025-02-28 06:52 | PROGRESS NOTE ---
Progress Note Ortho Progress Note Awake sitting in bed, Aware of Surgical intervention needed. ROS ROS No new complaints Exam Exam Comments LLE: Dressings D/C/I, no streaking up calf or strikethough, calf no TTP Problem/Assessment/Plan Additional Plan 4F with L foot ulcer and OM to the Forefoot. Planning on Surgical intervention during admission, likely tomorrow 03/01/25. Sx planning revised TMA and possible SAPNA to the Left foot Consent ordered: transmetatarsal amputation revision, incision and drainage, wound closure, possible tendoachilles lengthening, to the left foot, performed by Dr Perez and Dr Keane. Cont abx therapy NPO at [place] Discussed with Dr Perez Results/Orders Result Diagram: 02/27/25 0635 02/27/25 0635 MIREILLE KEANE DPM Feb 28, 2025 06:52
[2025-02-28] MEDS: lisinopril 20mg tablet PO SCH (08:00)
[2025-02-28] MEDS: gabapentin 300mg capsule PO SCH (08:35)
[2025-02-28] MEDS: loratadine 10mg tablet PO SCH (08:35)
[2025-02-28 08:36] LABS: BASOPHILS % (AUTO) 0.5 % (0-1); EOSINOPHILS # (AUTO) 0.2 X10'3 (0-0.9); EOSINOPHILS % (AUTO) 3.2 % (0-6); HEMATOCRIT 34.2 % (35.0-45.0); HEMOGLOBIN 11.4 g/dl (12.0-16.0); LYMPHOCYTES # (AUTO) 0.7 X10'3 (1.1-4.8); LYMPHOCYTES % (AUTO) 15.3 % (21-51); MEAN CORPUSCULAR HEMOGLOBIN 29.8 PG (27.0-31.0); MEAN CORPUSCULAR HGB CONC 33.4 g/dL (33.0-36.5); MEAN CORPUSCULAR VOLUME 89.1 FL (78-98); MEAN PLATELET VOLUME 6.8 FL (7.4-10.4); MONOCYTES # (AUTO) 0.4 X10'3 (0-0.9); MONOCYTES % (AUTO) 8.8 % (2-12); NEUTROPHILS # (AUTO) 3.5 X10'3 (1.8-7.7); NEUTROPHILS % (AUTO) 72.2 % (42-75); PLATELET COUNT 286 X10'3 (140-440); RED BLOOD COUNT 3.84 X10'6 (4.20-5.60); WHITE BLOOD COUNT 4.9 X10'3 (4.5-11.0)
[2025-02-28] MEDS: atorvastatin 20mg tablet PO SCH (08:36)
[2025-02-28] MEDS: levoTHYROXINE 25mcg tablet PO SCH (08:37)
[2025-02-28] MEDS: cholecalciferol (vitamin D3) 1,000 unit (25mcg) tablet PO SCH (08:37)
[2025-02-28 08:39] LABS: ALANINE AMINOTRANSFERASE 36 U/L (12-78); ALBUMIN 2.6 G/DL (3.4-5.0); ALBUMIN/GLOBULIN RATIO 0.6 (1.1-1.5); ALKALINE PHOSPHATASE 99 IU/L (46-116); ANION GAP 5 (8-16); ASPARTATE AMINO TRANSFERASE 52 U/L (10-37); BILIRUBIN,TOTAL 0.9 MG/DL (0.1-1.0); BLOOD UREA NITROGEN 33 MG/DL (7-18); BUN/CREATININE RATIO 23.2 (10.0-20.0); CHLORIDE 106 MMOL/L (99-107); CREATININE 1.42 MG/DL (0.40-0.90); GLUCOSE 93 MG/DL (70-104); MAGNESIUM 1.6 MG/DL (1.5-2.4); POTASSIUM 5.1 MMOL/L (3.5-5.1); SODIUM 138 MMOL/L (135-145); TOTAL CARBON DIOXIDE 27.4 MMOL/L (24-32); TOTAL PROTEIN 6.8 G/DL (6.4-8.2); eCRCL 28 ML/MIN; eGFR 36 ML/MIN
[2025-02-28] MEDS: FLUoxetine 20mg capsule PO SCH (08:43)
[2025-02-28] MEDS: VANCOMYCIN LEVEL IV ONE (09:30)
[2025-02-28 10:24] LABS: BASOPHILS % (AUTO) 0.7 % (0-1); EOSINOPHILS # (AUTO) 0.2 X10'3 (0-0.9); HEMATOCRIT 33.2 % (35.0-45.0); HEMOGLOBIN 11.2 g/dl (12.0-16.0); LYMPHOCYTES % (AUTO) 17.3 % (21-51); MEAN CORPUSCULAR HGB CONC 33.6 g/dL (33.0-36.5); MEAN CORPUSCULAR VOLUME 89.3 FL (78-98); MEAN PLATELET VOLUME 7.2 FL (7.4-10.4); MONOCYTES # (AUTO) 0.5 X10'3 (0-0.9); MONOCYTES % (AUTO) 9.1 % (2-12); NEUTROPHILS # (AUTO) 4.1 X10'3 (1.8-7.7); NEUTROPHILS % (AUTO) 69.9 % (42-75); PLATELET COUNT 268 X10'3 (140-440); RED BLOOD COUNT 3.72 X10'6 (4.20-5.60); RED CELL DISTRIBUTION WIDTH 15.2 % (11.5-14.5); WHITE BLOOD COUNT 5.8 X10'3 (4.5-11.0)
[2025-02-28 10:36] LABS: ALANINE AMINOTRANSFERASE 43 U/L (12-78); ALBUMIN 2.5 G/DL (3.4-5.0); ALBUMIN/GLOBULIN RATIO 0.6 (1.1-1.5); ALKALINE PHOSPHATASE 99 IU/L (46-116); ANION GAP 9 (8-16); ASPARTATE AMINO TRANSFERASE 57 U/L (10-37); BLOOD UREA NITROGEN 33 MG/DL (7-18); BUN/CREATININE RATIO 22.9 (10.0-20.0); CALCIUM 8.8 MG/DL (8.5-10.1); CHLORIDE 104 MMOL/L (99-107); CREATININE 1.44 MG/DL (0.40-0.90); GLUCOSE 101 MG/DL (70-104); POTASSIUM 4.7 MMOL/L (3.5-5.1); SODIUM 139 MMOL/L (135-145); TOTAL CARBON DIOXIDE 26.5 MMOL/L (24-32); TOTAL PROTEIN 6.8 G/DL (6.4-8.2); eCRCL 28 ML/MIN; eGFR 36 ML/MIN
[2025-02-28 11:38] LABS: VANCOMYCIN,TROUGH 26.8 ug/mL (10.0-20.0)
[2025-02-28 12:12] LABS: OCCULT BLOOD STOOL NEGATIVE (Neg)
[2025-02-28] MEDS: VANCOmycin 1250MG/NS 250ml Bag 250 ML IV SCH (15:42)
--- NOTE | 2025-02-28 16:11 | PROGRESS NOTE- Residence ---
Progress Note - Resident Providers to CC Resident Creating Document: KRYSTEN SHANTAMARICARMEN Todd RES ~ Antibiotic Timeout Antibiotic Ordered?: Yes Subjective The patient has been evaluated at the bedside. The patient is currently asymptomatic. Objective Vital Signs Date Time Temp Pulse Resp B/P (MAP) Pulse Ox O2 Delivery O2 Flow Rate FiO2 02/28/25 15:00 98.6 86 14 110/50 (70) 98 Room Air 02/26/25 23:00 0 Physical exam: General: Morbidly obese, Well alert, well oriented, not confused, not agitated, not in acute distress, well cooperated during the physical. HEENT: Conjunctive are pink, sclerae clear, no icterus, pupil is equal in both sides, reactive to light, no ear discharge, no pharyngeal erythema or an edema. Neck: Supple, no JVD, no lymphadenopathy and thyromegaly. Chest: Equal air entry on both lungs, no additional sounds no rhonchi no wheezing at the moment. Cardiovascular: S1-S2 regular sinus rhythm and, regular rate, no gallops, no rubs, no murmurs Abdomen: No visible peristalsis, Bowel sounds present on auscultation, soft, nontender, no guarding, no rigidity Extremities: Absence of five toes in left foot, absence of 5th small toe of the right foot, no pitting edema bilaterally, capillary refill intact, peripheral pulsations are intact on both sides Central Nervous System: No focal neurological deficits, no motor or sensory weakness in all 4 extremities, could move all 4 extremities, 2+ deep tendon reflexes, negative Babinski. Skin: 2 x 2 cm wound at the level of the left upper corner of the left foot, currently with clean dressing covered. Result Diagram: 02/28/25 0933 02/28/25 0933 Coagulation Studies Laboratory Tests Test 02/26/25 22:03 Prothrombin Time 10.9 SECONDS (9.0-12.0) INR International Normalized Ratio 1.1 INR Activated Partial Thromboplast Time 28 SECONDS (22-32) Coagulation Comments Assessment Assessment 74 years old female patient came to the hospital with chief complaint of yellowish secretion from ulcer wound at the level of the left foot. Plan to get transmetatarsal amputation on 03/01/[address] Jade. Infectious Disease, Dr. Graham involved in the case. Plan Plan Nonhealing wound in the dorsum of left foot Osteomyelitis, cellulitis and myositis at the level of 4th than 5th metatarsal in the setting of diabetes mellitus with chronic foot ulcer: The patient came to the hospital with chief complaint of yellow secretion from ulcer wound at the level of the left foot. Failed outpatient antibiotic management based on doxycycline. Cultures positive for Enterococcus faecalis, Corynebacterium, nonhemolytic Streptococcus in outpatient four days ago. Failed doxycycline treatment for three months. MRI of the left foot: Impression: Osteomyelitis in the proximal 4th and 5th metatarsal bones. Edema in the cuboid may be related to inflammation however osteomyelitis is not excluded. Possible ulceration and soft tissue gas in the plantar forefoot. Cellulitis and myositis throughout the visualized foot. Dr. Jade consulted who is going to evaluate the patient, he mentioned that surgery will be performed on 02/28/2025. Recommended involvement of infectious disease. Infectious Disease, Dr. Graham consulted. Awaiting for recommendations. Follow-up blood culture. Follow-up wound culture. Vancomycin pharmacy to dose. Zosyn t.i.d. IV. Culturelle [id number] mmu b.i.d. Diabetes mellitus: Hypoglycemia: Hemoglobin A1c 5.5. The patient has been experiencing episodes of hypoglycemia. Current diabetic medications on hold due to episodes of hypoglycemia. D5% half NS at 75 mL/hour. Hypertension: Current blood pressure within reference range. Lisinopril 20 mg daily. Paroxysmal Atrial fibrillation rate controlled: Chads Vasc score: 4: The patient was benefit from blood thinners. Currently not started blood thinners for planned surgery. Metoprolol heart rate 25 mg b.i.d. Obstructive sleep apnea Morbid obesity The patient mentioned that she was not using CPAP at her home. CPAP at night. The patient will require CPAP as an outpatient. CKD stage 3 Baseline creatinine 1.4. Continue monitoring CMP. On D 5% half NS at 75 mL/hour Code Status: Limited, no intubation DVT Prophylaxis: Heparin Analgesia/Sedation: [place], morphine p.r.n. Lines/Tubes: PIV Gi Prophylaxis: None Nutrition: NPO after midnight. PT: yes Prognosis: Guarded Disposition: Continue medical management. Plan metatarsal amputation on 03/01/2025. Infectious Disease involved, awaiting recommendations. Maricarmen Sosa Internal Medicine Resident [facility] Date of Service: Feb 28, 2025 Billing Provider: STACI KOCH MD, FRANCO LUIS, RES Feb 28, 2025 16:11
[2025-02-28] MEDS: JUVEN Shake w/Arg/Glut/Ca2+Bmb (Juven 19.3gm) pkt 240ml PO SCH (17:30)
[2025-02-28] MEDS: latanoprost 0.005% 2.5ml ophthalmic drops EACHEYE SCH (19:36)
[2025-03-01] VITALS (20 sets, daily range): BP systolic 112–150; BP diastolic 54–80; PULSE 62–94; RESP 6–19; TEMP 97.4–98.2; O2SAT 94–100
--- NOTE | 2025-03-01 01:35 | CONSULTATION ---
DATE OF CONSULTATION: 02/28/2025 DICTATING PHYSICIAN: Kip Graham MD REASON FOR CONSULTATION: I am seeing the patient at the request of Dr. Jessica for evaluation of a left foot infection. HISTORY OF PRESENT ILLNESS: The patient is a 74-year-old female with morbid obesity, who is known to Dr. Watkins in the past for a similar issue. I believe she has required transmetatarsal amputation in the past. She does have an open wound at the plantar aspect of her left foot laterally. She is followed by Dr. Leroy at [facility]. I believe she was sent into the hospital as there was concern that her foot was worsening. She apparently had developed evidence of cellulitis. She is supposed to be going to the operating room soon with Dr. Keane. She is currently receiving Zosyn and vancomycin. PHYSICAL EXAMINATION: VITAL SIGNS: She is afebrile with stable vital signs. GENERAL: She is a pleasant elderly female sitting up in bed, looking stable. LUNGS: Clear to auscultation bilaterally. HEART: Regular rate and rhythm. ABDOMEN: Obese, soft, and nontender. EXTREMITIES: The left foot was examined. She does not have significant cellulitis right now, but she does have an open wound at the plantar aspect laterally with prior transmetatarsal amputation. DIAGNOSTIC DATA: She did have an MRI performed that showed evidence of osteomyelitis at the fourth and fifth metatarsals. There was also some bone marrow edema at the cuboid. Wound culture is pending at this time. LABORATORY DATA: White blood cell count is normal at 5,800, hemoglobin 11.2, platelets 268,000. Creatinine 1.4. Hemoglobin A1c is normal. IMPRESSION: * Osteomyelitis of the left foot associated with a chronic plantar ulcer at the lateral aspect. Osteomyelitis appears to involve the fourth and fifth metatarsals. It is unclear if she has wound culture data at [facility]. * Diabetes mellitus type 2 that is well controlled. * Stage 3 chronic kidney disease. RECOMMENDATIONS: She will continue with vancomycin and Zosyn for now. I will follow up her culture results here as well as [facility]. Antibiotics will be adjusted based on those results. She is going to be going to the operating room soon for debridement and possible resection. I will await her operative findings and we will determine what she will need moving forward. PICC will likely be needed. I will continue to follow her closely and I thank you for allowing me to participate in her care. Kip Graham MD TID: [id number] RECEIPT: [id number] DUDLEY/SAMEER
[2025-03-01 07:00] LABS: BASOPHILS % (AUTO) 0.8 % (0-1); EOSINOPHILS # (AUTO) 0.2 X10'3 (0-0.9); EOSINOPHILS % (AUTO) 3.6 % (0-6); HEMATOCRIT 33.1 % (35.0-45.0); HEMOGLOBIN 11.1 g/dl (12.0-16.0); LYMPHOCYTES # (AUTO) 1.1 X10'3 (1.1-4.8); LYMPHOCYTES % (AUTO) 22.6 % (21-51); MEAN CORPUSCULAR HEMOGLOBIN 30.1 PG (27.0-31.0); MEAN CORPUSCULAR HGB CONC 33.6 g/dL (33.0-36.5); MEAN CORPUSCULAR VOLUME 89.4 FL (78-98); MEAN PLATELET VOLUME 6.9 FL (7.4-10.4); MONOCYTES # (AUTO) 0.5 X10'3 (0-0.9); MONOCYTES % (AUTO) 11.5 % (2-12); NEUTROPHILS # (AUTO) 2.9 X10'3 (1.8-7.7); NEUTROPHILS % (AUTO) 61.5 % (42-75); PLATELET COUNT 275 X10'3 (140-440); WHITE BLOOD COUNT 4.7 X10'3 (4.5-11.0)
[2025-03-01 07:17] LABS: ALANINE AMINOTRANSFERASE 79 U/L (12-78); ALBUMIN 2.5 G/DL (3.4-5.0); ALBUMIN/GLOBULIN RATIO 0.6 (1.1-1.5); ALKALINE PHOSPHATASE 122 IU/L (46-116); ANION GAP 5 (8-16); ASPARTATE AMINO TRANSFERASE 99 U/L (10-37); BILIRUBIN,TOTAL 0.7 MG/DL (0.1-1.0); BLOOD UREA NITROGEN 36 MG/DL (7-18); BUN/CREATININE RATIO 24.3 (10.0-20.0); CALCIUM 8.9 MG/DL (8.5-10.1); CHLORIDE 106 MMOL/L (99-107); CREATININE 1.48 MG/DL (0.40-0.90); GLUCOSE 139 MG/DL (70-104); MAGNESIUM 1.7 MG/DL (1.5-2.4); POTASSIUM 5.2 MMOL/L (3.5-5.1); SODIUM 138 MMOL/L (135-145); TOTAL CARBON DIOXIDE 26.8 MMOL/L (24-32); TOTAL PROTEIN 6.5 G/DL (6.4-8.2); eCRCL 27 ML/MIN; eGFR 35 ML/MIN
[2025-03-01] MEDS: gabapentin 300mg capsule PO SCH (07:34)
[2025-03-01] MEDS ORDERED: enalaprilat 1.25mg/ml 2ml vial IV PRN (07:55)
[2025-03-01] MEDS ORDERED: morphine 4 MG/ML inj SYRINge IV PRN (07:55)
[2025-03-01] MEDS ORDERED: proCHLORperazine 10 MG/2 ml inj IV PRN (07:55)
[2025-03-01] MEDS ORDERED: labetalol 20mg/4ml (5mg/ml) syringe IV PRN (07:55)
[2025-03-01] MEDS ORDERED: morphine 2 MG/ML inj. syringe IV PRN (07:55)
[2025-03-01] MEDS: ringers solution, lacted 1,000 ML IV SCH (07:55)
[2025-03-01] MEDS ORDERED: ondansetron/PF 4mg/2ml inj IV PRN (07:55)
[2025-03-01] MEDS ORDERED: meperidine/PF 25mg/ml syringe IV PRN ×3 (07:55)
[2025-03-01] MEDS ORDERED: BUPIVAcaine 2.5mg/ml inj 50ml vial (contains preservative) ONE (09:30)
[2025-03-01] MEDS ORDERED: vancomycin 1,000mg inj ONE (09:30)
[2025-03-01] MEDS ORDERED: bacitracin 15gm ointment TP ONE (09:30)
--- NOTE | 2025-03-01 10:41 | ANESTHESIA RECORDS ---
Nerve Block Providers to CC ~ Diagnosis: Nerve Block requested by: AMILCAR GONZALEZ DPOrlando Neuraxial/Peripheral Nerve Block requested for Post-operative analgesia by Physician above DIAGNOSIS: Post-operative pain. (Body Area) Shoulder: [ ] Arm: [ ] Hand: [ ] Hip: [ ] Knee: [ ] Ankle: [ ] Foot: [ Left ] Leg: [ ] Abdomen: [ ] Other: [ ] Post-operative pain expected to be/is inadequately managed by oral or IV medicines. Regional anesthetic expected to facilitate rehabilitation and/or discharge from facility. Other:[ ] Procedure Performed: Popliteal Lateral: Left Time out Done?: Yes Time of Time out: 09:37 Procedure Details: PROCEDURE DETAILS: Risks, benefits and alternatives explained Informed consent obtained, and patient wishes to proceed Conscious sedation with indicated monitors Patient positioned, pertinent anatomy defined, sterile technique used Needle used: [ ] 3 1/8 inch Stimuplex Ultra 22ga [ ] 4 inch Stimuplex Ultra 20ga [x ] 6 inch Stimuplex Ultra 20ga [ ] 6 inch, Quikbloc over the needle catheter set 20ga [ ] 4 inch Quikbloc over the needle catheter set 20ga [ ]Other: [ ] Loss of twitch @ [ 0.5 ]mA [x ] Single Injection [ ] Catheter Ultrasound Guidance Used: [x ] Yes [ ] No Attempts:[ once ] Medicines injected: [ ]Clonidine Amt:[ ] [x ]Dexamethasone Amt:[ 3 mgs ] [x ]Ropivacaine Amt:[___0.5% Ropivacaine 38 cc ] [ ]Bupivacaine Amt:[ ] [ ]Lidocaine Amt:[ ] [ ]Exparel 1.33%:[ ] [ ]Epinephrine Amt[ ] [ ]Other: [ ] Intermittent aspiration during local anesthetic administration No symptoms of intraneural or intravenous injection Patient tolerated procedure well Comments Left Politeal fossa Block Pt in Rt lateral position with Left Leg flexed at 90 Degrees. Lateral approach. Ultrasound probe placed back of thigh 2 inches above the knee joint. Easy visualization of the Sciatic nerve. 1% xylocaine local anesthetic. Easy visualization of Spreading of local anesthetic anterior and posterior to the Sciatic nerve sub paraneurally inside sciatic nerve sheath. Meaningful conv ersation t throughout. No Pain or discomfort during injection. RADHA TSE MD Mar 01, 2025 10:41
--- NOTE | 2025-03-01 12:20 | OPERATIVE REPORT ---
DATE OF SURGERY: 03/01/2025 DICTATING PHYSICIAN: Jerel Perez MD PREOPERATIVE DIAGNOSIS: Full thickness wound with osteomyelitis, left foot. PREOPERATIVE DIAGNOSIS: Full thickness wound with osteomyelitis, left foot. PROCEDURE: Revision transmetatarsal amputation with plantar myofasciocutaneous advancement flap and incision and drainage, left foot. SURGEON: Jerel Perez MD FINANCIAL INVESTIGATOR: None. ANESTHESIA: General with popliteal nerve block. ANESTHESIOLOGIST: Dr. Toledo. ESTIMATED BLOOD LOSS: Minimal. COMPLICATIONS: None. IMPLANT USED: None. SPECIMENS: Deep wound cultures and 2, 3, 4, 5 metatarsal pathology, left foot. INDICATIONS: The patient is an inpatient at [facility] for the above-stated chief complaints. The patient's condition has been unresponsive to conservative treatment to this point, thus surgical options were offered at this time along with all potential risks, complications, expected outcomes being fully explained to the patient's full understanding. No guarantees were given. Clinical and radiographic data correlate well with the above diagnosis. DESCRIPTION OF PROCEDURE: The patient was brought to the operating room and placed on the table in supine position. Upon administration of anesthesia, the left leg was scrubbed, prepped and draped in the usual aseptic manner. Pneumatic calf tourniquet, which had previously been applied, was now inflated to approximately 200 mmHg. Next, 2 transverse semi-elliptical incisions were created around the plantar distal stump of the previous incision on the left foot. The incision was carried full thickness down to bone. The wound was completely excised and removed from the operative field. Deep wound cultures were obtained with a deep swab. The metatarsals were identified. These were noted to be quite degenerative and diseased in appearance. A sagittal saw was used to resect the second, third, fourth, and fifth metatarsal distal stumps to a more anatomically correct position with care being taken to maintain metatarsal parabola. All rough edges and fragmented pieces of bone were removed with a rongeur and smoothed with the hand rasp. These bone resection pieces were sent for pathological analysis. The wound was then flushed with copious amounts of Irrisept antibacterial solution. Next, vancomycin absorbable antibiotic beads were created on the back table and implanted into the wound site. Next, dissection was carried plantarly creating a plantar myofasciocutaneous full-thickness flap. There was enough excursion created on the plantar skin flap and this was advanced distally and reapproximated with 2-0 nylon. Correction of the above-stated deformities were assessed at this time and noted to be excellent. All wounds were covered with sterile triple antibiotic ointment, sterile Adaptic, sterile 4 x 4's, sterile Webril followed by stockinette, additional Webril, plaster posterior splint with sugar tongs and Sunil bandage and placed in moderate compression dressing. Sedation was discontinued. Tourniquet was deflated with immediate hyperemic response to the left foot. The patient was taken to the PACU for postoperative monitoring. All vitals were stable and vascular status intact. The patient was given crutches and knee scooter and will follow up in the office in approximately 2 weeks. She will be readmitted to the floor for continued medical management and IV antibiotics. Jerel Perez MD TID: [id number] RECEIPT: [id number] JUAN/SAMEER
--- NOTE | 2025-03-01 13:49 | PROGRESS NOTE- Residence ---
Progress Note - Resident Providers to CC Resident Creating Document: JAMIN DEJESUS, OSVALDO ~ Antibiotic Timeout Antibiotic Ordered?: Yes Subjective The patient has been evaluated at the bedside. The patient is currently asymptomatic. Planned to get surgery today. Objective Vital Signs Date Time Temp Pulse Resp B/P (MAP) Pulse Ox O2 Delivery O2 Flow Rate FiO2 03/01/25 11:50 74 6 140/78 (98) 98 Room Air 0.0 03/01/25 11:10 97.0 Physical exam: General: Morbidly obese, Well alert, well oriented, not confused, not agitated, not in acute distress, well cooperated during the physical. HEENT: Conjunctive are pink, sclerae clear, no icterus, pupil is equal in both sides, reactive to light, no ear discharge, no pharyngeal erythema or an edema. Neck: Supple, no JVD, no lymphadenopathy and thyromegaly. Chest: Equal air entry on both lungs, no additional sounds no rhonchi no wheezing at the moment. Cardiovascular: S1-S2 regular sinus rhythm and, regular rate, no gallops, no rubs, no murmurs Abdomen: No visible peristalsis, Bowel sounds present on auscultation, soft, nontender, no guarding, no rigidity Extremities: Absence of five toes in left foot, absence of 5th small toe of the right foot, no pitting edema bilaterally, capillary refill intact, peripheral pulsations are intact on both sides Central Nervous System: No focal neurological deficits, no motor or sensory weakness in all 4 extremities, could move all 4 extremities, 2+ deep tendon reflexes, negative Babinski. Skin: 2 x 2 cm wound at the level of the left upper corner of the left foot, currently with clean dressing covered. Result Diagram: 03/01/25 0633 03/01/25 0633 Coagulation Studies Laboratory Tests Test 02/26/25 22:03 Prothrombin Time 10.9 SECONDS (9.0-12.0) INR International Normalized Ratio 1.1 INR Activated Partial Thromboplast Time 28 SECONDS (22-32) Coagulation Comments Assessment Assessment 74 years old female patient came to the hospital with chief complaint of yellowish secretion from ulcer wound at the level of the left foot. The patient underwent transmetatarsal amputation on 03/01/[address] Perez. Infectious Disease, Dr. Graham involved in the case. Plan Plan Nonhealing wound in the dorsum of left foot Osteomyelitis, cellulitis and myositis at the level of 4th than 5th metatarsal in the setting of diabetes mellitus with chronic foot ulcer: S/P Revision transmetatarsal amputation with plantar myofasciocutaneous advancement flap and incision and drainage, left foot. POD: 0 The patient came to the hospital with chief complaint of yellow secretion from ulcer wound at the level of the left foot. Failed outpatient antibiotic management based on doxycycline. Cultures positive for Enterococcus faecalis, Corynebacterium, nonhemolytic Streptococcus in outpatient four days ago. Failed doxycycline treatment for three months. MRI of the left foot: Impression: Osteomyelitis in the proximal 4th and 5th metatarsal bones. Edema in the cuboid may be related to inflammation however osteomyelitis is not excluded. Possible ulceration and soft tissue gas in the plantar forefoot. Cellulitis and myositis throughout the visualized foot. Dr. Perez consulted who performed revision of transmetatarsal amputation with plantar my of fasciocutaneous advancement flap and incision and drainage on 03/01/2025. Infectious Disease, Dr. Graham consulted. Who recommends to continue vancomycin and Zosyn, PICC line to be determined if needed. follow up her culture results here as well as [facility]. Blood culture no growth after two days. Follow-up wound culture. Vancomycin pharmacy to dose. Zosyn t.i.d. IV. Culturelle [id number] mmu b.i.d. Diabetes mellitus: Hypoglycemia: Hemoglobin A1c 5.5. The patient has been experiencing episodes of hypoglycemia. Current diabetic medications on hold due to episodes of hypoglycemia. Low-dose short-acting insulin sliding scale. NS at 50 mL/hour. Hypertension: Current blood pressure within reference range. Lisinopril 20 mg daily. Paroxysmal Atrial fibrillation rate controlled: Chads Vasc score: 4: The patient was benefit from blood thinners. Currently not started blood thinners for planned surgery. Metoprolol heart rate 25 mg b.i.d. Obstructive sleep apnea Morbid obesity The patient mentioned that she was not using CPAP at her home. CPAP at night. The patient will require CPAP as an outpatient. CKD stage 3 Baseline creatinine 1.4. Continue monitoring CMP. NS at 50 mL/hour Code Status: Limited, no intubation DVT Prophylaxis: Heparin Analgesia/Sedation: [place], morphine p.r.n. Lines/Tubes: PIV Gi Prophylaxis: None Nutrition: NPO after midnight. PT: yes Prognosis: Guarded Disposition: The patient underwent performed revision of transmetatarsal amputation with plantar my of fasciocutaneous advancement flap and incision and drainage on 03/01/2025. Pending physical therapy evaluation. Jamin Sosa Internal Medicine Resident [facility] Date of Service: Mar 01, 2025 Billing Provider: STACI KOCH MD, FRANCO LUIS, RES Mar 01, 2025 13:49
[2025-03-01] MEDS: normal saline 1000ml 1,000 ML IV SCH (19:46)
[2025-03-01] MEDS: HYDROcodone/acetaminophen 10/325mg tab PO PRN (21:39)
[2025-03-01] MEDS: INSULIN LISPRO 100 UNIT/ML INSULN.PEN MULTI-DOSE SQ SCH (22:05)
[2025-03-01] MEDS: INSULIN LISPRO 100 UNIT/ML INSULN.PEN MULTI-DOSE SQ ONE (22:19)
[2025-03-02] MEDS: mag hydrox/Alum hydrox/simeth 30ml oral suspension PO PRN (00:51)
[2025-03-02] MEDS: baclofen 10mg tablet PO PRN ×2 (00:51→21:33)
[2025-03-02 02:00] VITALS: BP 145/69; PULSE 64; RESP 18; TEMP 97.8; O2SAT 96
[2025-03-02 06:00] VITALS: BP 151/71; PULSE 70; RESP 16; TEMP 97.3; O2SAT 98
[2025-03-02 06:30] LABS: BASOPHILS % (AUTO) 0.2 % (0-1); EOSINOPHILS % (AUTO) 0.1 % (0-6); HEMATOCRIT 33.7 % (35.0-45.0); HEMOGLOBIN 11.2 g/dl (12.0-16.0); LYMPHOCYTES # (AUTO) 0.9 X10'3 (1.1-4.8); LYMPHOCYTES % (AUTO) 18.1 % (21-51); MEAN CORPUSCULAR HEMOGLOBIN 29.8 PG (27.0-31.0); MEAN CORPUSCULAR HGB CONC 33.2 g/dL (33.0-36.5); MEAN CORPUSCULAR VOLUME 89.8 FL (78-98); MEAN PLATELET VOLUME 7.1 FL (7.4-10.4); MONOCYTES # (AUTO) 0.3 X10'3 (0-0.9); MONOCYTES % (AUTO) 6.9 % (2-12); NEUTROPHILS # (AUTO) 3.7 X10'3 (1.8-7.7); NEUTROPHILS % (AUTO) 74.7 % (42-75); PLATELET COUNT 294 X10'3 (140-440); RED BLOOD COUNT 3.75 X10'6 (4.20-5.60); RED CELL DISTRIBUTION WIDTH 14.6 % (11.5-14.5)
[2025-03-02 07:03] LABS: ALANINE AMINOTRANSFERASE 76 U/L (12-78); ALBUMIN 2.6 G/DL (3.4-5.0); ALBUMIN/GLOBULIN RATIO 0.6 (1.1-1.5); ALKALINE PHOSPHATASE 121 IU/L (46-116); ANION GAP 8 (8-16); ASPARTATE AMINO TRANSFERASE 66 U/L (10-37); BILIRUBIN,TOTAL 0.5 MG/DL (0.1-1.0); BLOOD UREA NITROGEN 37 MG/DL (7-18); BUN/CREATININE RATIO 24.2 (10.0-20.0); CALCIUM 8.9 MG/DL (8.5-10.1); CHLORIDE 104 MMOL/L (99-107); CREATININE 1.53 MG/DL (0.40-0.90); GLUCOSE 200 MG/DL (70-104); MAGNESIUM 1.7 MG/DL (1.5-2.4); POTASSIUM 4.5 MMOL/L (3.5-5.1); SODIUM 139 MMOL/L (135-145); THYROID STIMULATING HORMONE 0.66 ulU/ml (0.34-4.50); TOTAL CARBON DIOXIDE 27.2 MMOL/L (24-32); TOTAL PROTEIN 6.7 G/DL (6.4-8.2); eCRCL 26 ML/MIN; eGFR 33 ML/MIN
[2025-03-02 10:00] VITALS: BP 114/54; PULSE 74; RESP 14; TEMP 97.5; O2SAT 97
--- NOTE | 2025-03-02 10:48 | PROGRESS NOTE ---
Progress Note Dictate Providers to CC ~ Subjective Subjective: She is currently stable. She would like to go to [facility] for rehab. I did speak with Dr. Perez who felt that all osteomyelitis was resected. He stated that remaining bone looked healthy with no purulence in the area. Objective Objective: GENERAL: She is a pleasant elderly female sitting up in bed, looking stable. LUNGS: Clear to auscultation bilaterally. HEART: Regular rate and rhythm. ABDOMEN: Obese, soft, and nontender. EXTREMITIES: The left foot is wrapped Lab Results: 03/02/25 0531 03/02/25 0531 Problem\Assessment\Plan Additional Plan 1. Osteomyelitis of the left foot associated with a chronic plantar ulcer at the lateral aspect. Osteomyelitis appears to involve the fourth and fifth metatarsals. s/p resection/debridement with closure 2. Diabetes mellitus type 2 that is well controlled. 3. Stage 3 chronic kidney disease. DC vancomycin and Zosyn Start Augmentin Plan for two weeks of therapy at rehab Offloading and wound care BERNADETTE ROY MD Mar 02, 2025 10:48
[2025-03-02 15:00] VITALS: BP 102/46; PULSE 75; RESP 20; TEMP 97.8; O2SAT 95
[2025-03-02] MEDS: amox tr/potassium clavulanate 875/125mg TAB PO SCH (17:29)
[2025-03-02] MEDS: Chloraseptic (Phenol) Spray 177ml MM PRN (17:30)
[2025-03-02 18:00] VITALS: BP 131/62; PULSE 83; RESP 20; TEMP 99.3; O2SAT 97
[2025-03-02 20:00] VITALS: RESP 20; O2SAT 97
--- NOTE | 2025-03-02 22:43 | PROGRESS NOTE ---
Progress Note Ortho Ortho Post Op Day #: 1 ROS ROS No new complaints Exam Exam Comments AnO x3 LLE: Dressings D/C/I Minimal Pain Splint intact No streaking beyond dressings. No calf pain. no strikethrough Problem/Assessment/Plan Additional Plan 74F 1d s/p left TMA revision and wound closure from OM. Pt doing well today. ID consulted. Per ID- Start Augmentin, Plan for two weeks of therapy at rehab Cx pending from OR on 03/01/25 No WB to the LLE Dressing changed by Surgeon team at this time Unable to performs PT safely do to comorbidities and NWB to the LLE Awaiting Rehab Discussed with Dr montague. Results/Orders Result Diagram: 03/02/25 0531 03/02/25 0531 MIREILLE KELLY DPM Mar 02, 2025 22:43
[2025-03-03 02:00] VITALS: BP 124/57; PULSE 66; RESP 19; TEMP 97.8; O2SAT 96
[2025-03-03 06:00] VITALS: BP 130/68; PULSE 74; RESP 13; TEMP 97.6; O2SAT 95
[2025-03-03 06:09] LABS: BASOPHILS # (AUTO) 0.1 X10'3 (0-0.2); BASOPHILS % (AUTO) 0.7 % (0-1); EOSINOPHILS # (AUTO) 0.1 X10'3 (0-0.9); EOSINOPHILS % (AUTO) 1.6 % (0-6); HEMATOCRIT 33.6 % (35.0-45.0); HEMOGLOBIN 11.3 g/dl (12.0-16.0); LYMPHOCYTES # (AUTO) 2.5 X10'3 (1.1-4.8); LYMPHOCYTES % (AUTO) 33.7 % (21-51); MEAN CORPUSCULAR HEMOGLOBIN 30.1 PG (27.0-31.0); MEAN CORPUSCULAR HGB CONC 33.7 g/dL (33.0-36.5); MEAN CORPUSCULAR VOLUME 89.2 FL (78-98); MEAN PLATELET VOLUME 6.8 FL (7.4-10.4); MONOCYTES # (AUTO) 0.5 X10'3 (0-0.9); MONOCYTES % (AUTO) 6.6 % (2-12); NEUTROPHILS # (AUTO) 4.3 X10'3 (1.8-7.7); NEUTROPHILS % (AUTO) 57.4 % (42-75); PLATELET COUNT 285 X10'3 (140-440); RED BLOOD COUNT 3.77 X10'6 (4.20-5.60); RED CELL DISTRIBUTION WIDTH 14.8 % (11.5-14.5); WHITE BLOOD COUNT 7.4 X10'3 (4.5-11.0)
[2025-03-03 06:56] LABS: ALANINE AMINOTRANSFERASE 75 U/L (12-78); ALBUMIN 2.6 G/DL (3.4-5.0); ALBUMIN/GLOBULIN RATIO 0.7 (1.1-1.5); ALKALINE PHOSPHATASE 113 IU/L (46-116); ASPARTATE AMINO TRANSFERASE 74 U/L (10-37); BILIRUBIN,TOTAL 0.3 MG/DL (0.1-1.0); BLOOD UREA NITROGEN 44 MG/DL (7-18); BUN/CREATININE RATIO 29.3 (10.0-20.0); CALCIUM 8.7 MG/DL (8.5-10.1); CHLORIDE 108 MMOL/L (99-107); GLUCOSE 95 MG/DL (70-104); POTASSIUM 4.9 MMOL/L (3.5-5.1); SODIUM 139 MMOL/L (135-145); TOTAL PROTEIN 6.5 G/DL (6.4-8.2); eCRCL 27 ML/MIN; eGFR 34 ML/MIN
[2025-03-03 07:06] LABS: ANION GAP 6 (8-16)
--- NOTE | 2025-03-03 08:24 | PROGRESS NOTE- Residence ---
Progress Note - Resident Providers to CC Resident Creating Document: MARIA ISABEL CAMARGO RES ~ Antibiotic Timeout Antibiotic Ordered?: Yes Subjective this is a note for 03/02/25 The patient has been evaluated at the bedside. S/P Revision transmetatarsal amputation,no new complaint. Objective Vital Signs Date Time Temp Pulse Resp B/P (MAP) Pulse Ox O2 Delivery O2 Flow Rate FiO2 03/03/25 06:30 71 03/03/25 02:00 97.8 19 124/57 (79) 96 Room Air 03/02/25 08:00 0.0 03/02/25 04:59 96 Result Diagram: 03/03/25 0521 03/03/25 05 General: Morbidly obese, Well alert, well oriented, not confused, not agitated, not in acute distress, well cooperated during the physical. HEENT: Conjunctive are pale, sclerae clear, no icterus, pupil is equal in both sides, reactive to light, no ear discharge, no pharyngeal erythema or an edema. Neck: Supple, no JVD, no lymphadenopathy and thyromegaly. Chest: Equal air entry on both lungs, no additional sounds no rhonchi no wheezing at the moment. Cardiovascular: S1-S2 regular sinus rhythm and, regular rate, no gallops, no rubs, no murmurs Abdomen: No visible peristalsis, Bowel sounds present on auscultation, soft, nontender, no guarding, no rigidity Extremities: left foot covered by dressing , No hematoma, absence of 5th small toe of the right foot, no pitting edema bilaterally, capillary refill intact, peripheral pulsations are intact on both sides Central Nervous System: No focal neurological deficits, no motor or sensory weakness in all 4 extremities, could move all 4 extremities, 2+ deep tendon reflexes, negative Babinski. Coagulation Studies Laboratory Tests Test 02/26/25 22:03 Prothrombin Time 10.9 SECONDS (9.0-12.0) INR International Normalized Ratio 1.1 INR Activated Partial Thromboplast Time 28 SECONDS (22-32) Coagulation Comments Assessment Assessment 74 years old female patient came to the hospital with chief complaint of yellowish secretion from ulcer wound at the level of the left foot. The patient underwent transmetatarsal amputation on 03/01/[address] Perez. Infectious Disease, Dr. Graham involved in the case. Plan Plan Nonhealing wound in the dorsum of left foot Osteomyelitis, cellulitis and myositis at the level of 4th than 5th metatarsal in the setting of diabetes mellitus with chronic foot ulcer: S/P Revision transmetatarsal amputation with plantar myofasciocutaneous advancement flap and incision and drainage, left foot. POD: 1 The patient came to the hospital with chief complaint of yellow secretion from ulcer wound at the level of the left foot. Failed outpatient antibiotic management based on doxycycline. Cultures positive for Enterococcus faecalis, Corynebacterium, nonhemolytic Streptococcus in outpatient four days ago. Failed doxycycline treatment for three months. MRI of the left foot: Impression: Osteomyelitis in the proximal 4th and 5th metatarsal bones. Edema in the cuboid may be related to inflammation however osteomyelitis is not excluded. Possible ulceration and soft tissue gas in the plantar forefoot. Cellulitis and myositis throughout the visualized foot. Dr. Perez consulted who performed revision of transmetatarsal amputation with plantar my of fasciocutaneous advancement flap and incision and drainage on 03/01/2025. Infectious Disease, Dr. Graham consulted. Who recommends changed the vancomycin and Zosyn to Augmentin, PICC line does not needed. follow up her culture results here as well as [facility]. Blood culture no growth after 3 days. Follow-up wound culture. Start Augmentin, Plan for two weeks of therapy at rehab Offloading and wound care Culturelle [id number] [address]mu [address]i.d. Diabetes mellitus: Hypoglycemia: Hemoglobin A1c 5.5. The patient has been experiencing episodes of hypoglycemia. Current diabetic medications on hold due to episodes of hypoglycemia. Low-dose short-acting insulin sliding scale. NS at 50 mL/hour. Hypertension: Current blood pressure within reference range. Lisinopril 20 mg daily. Paroxysmal Atrial fibrillation rate controlled: Chads Vasc score: 4: The patient was benefit from blood thinners. Currently not started blood thinners for planned surgery. Metoprolol heart rate 25 mg b.i.d. Obstructive sleep apnea Morbid obesity The patient mentioned that she was not using CPAP at her home. CPAP at night. The patient will require CPAP as an outpatient. CKD stage 3 Baseline creatinine 1.4. Continue monitoring CMP. NS at 50 mL/hour Code Status: Limited, no intubation DVT Prophylaxis: Heparin Analgesia/Sedation: Larned, morphine p.r.n. Lines/Tubes: PIV Gi Prophylaxis: None Nutrition: carb controlled PT: yes Prognosis: Guarded Disposition: The patient underwent performed revision of transmetatarsal amputation with plantar my of fasciocutaneous advancement flap and incision and drainage on 03/01/2025. Pending physical therapy evaluation. Maria Isabel Camargo MD Internal Medicine Resident [facility] Date of Service: Mar 02, 2025 Billing Provider: STACI KOCH MD, ELAHE, RES Mar 03, 2025 08:24
[2025-03-03 11:51] VITALS: BP 153/77; PULSE 72; RESP 15; TEMP 97.8; O2SAT 96
[2025-03-03 12:38] VITALS: RESP 13
[2025-03-03] MEDS ORDERED: VANCOMYCIN LEVEL IV ONE (13:30)
--- NOTE | 2025-03-03 13:40 | PROGRESS NOTE ---
Progress Note Ortho Ortho Post Op Day #: 2 ROS ROS No new complaints Problem/Assessment/Plan Additional Plan 74F 2d s/p Left Revision TMA and wound excision. Dressings change yesterday by WC team. THank you WC. Incision Wound appeared stable. Pt okay for DC from foot and ankle standpoint. Cont NWB to the LLE Keep dressings D/c/I F/u in 2 weeks in clinic Discussed with Dr Perez. Results/Orders Result Diagram: 03/03/25 0521 03/03/25 0521 MIREILLE KELLY DPM Mar 03, 2025 13:40
--- NOTE | 2025-03-03 16:15 | DISCHARGE SUMMARY-Residence ---
Discharge Summary Providers to CC Resident Creating Document: MARICARMEN DEJESUS SHAKIRA, RES ~ Discharge Summary Admission Diagnosis: NON HEALING WOUND Hospital Course DATE OF ADMISSION: 02/26/2025 DATE OF DISCHARGE: 03/03/2025 Laboratory: WBC, 7.4, RBC 3.77, hemoglobin 11.3, hematocrit 33.6, MCV 89.2, platelet count 285, sodium 139, potassium 4.9, carbon dioxide 25.0, BUN 44, creatinine 1.50, GFR 34, glucose 95, A1c 5.5. Imaging: Lower extremity MRI: Osteomyelitis in the proximal 4th and 5th metatarsal bones. Edema in the cuboid may be related to inflammation however osteomyelitis is not excluded. Possible ulceration and soft tissue gas in the plantar forefoot. Cellulitis and myositis throughout the visualized foot. Chest x-ray: No acute findings. Slightly prominent purple markings probably related to patient's body habitus. Discharge Diagnosis\Comment: Nonhealing wound in the dorsum of left foot unrelated to the previous transmetatarsal amputation Osteomyelitis, cellulitis and myositis at the level of 4th than 5th metatarsal in the setting of diabetes mellitus with chronic foot ulcer S/P Revision transmetatarsal amputation with plantar myofasciocutaneous advancement flap and incision and drainage, left foot. POD: 2 Diabetes mellitus Hypoglycemia Paroxysmal Atrial fibrillation rate controlled Chads Vasc score: 4 Obstructive sleep apnea Morbid obesity CKD stage 3 Operations\Procedures: Revision transmetatarsal amputation with plantar myofasciocutaneous advancement flap and incision and drainage, left foot. Consultants: Dr. Chris Graham Complications: None Condition on DC: Stable Discharge Summary: HPI: This is a 74 year old morbidly obese female with a history of hypertension, diabetes, paroxysmal AFib not on blood thinners, CKD stage 3, obstructive sleep apnea, left foot metatarsal amputation last year was sent to the ED from the wound care clinic for the management of left foot wound after outpatient treatment failure. Patient mentions that she has pain in the left foot since the last three days and noticed blood pus filled discharge coming out of her chronic wound on the left foot. The wound is about 2 x 2 x 1 cm on the dorsum of the foot in the left upper corner with yellowish pus draining from it. However there was no foul smell and no fever. Patient was prescribed doxycycline and has been taking it since the last three months. However the wound cultures taken four days ago grew Enterococcus faecalis, Corynebacterium, nonhemolytic Streptococcus resistant to erythromycin and sensitive to ampicillin, penicillin, rifampin, vancomycin. Patient was seen by Dr. Leroy for IV antibiotics after failure of outpatient antibiotics. She was also scheduled for amputation of the left foot due to suspected osteomyelitis on this by Dr. Jade. Arterial Doppler done recently at [facility] showed good flow and she denies claudication symptoms. Hospital course: 74 years old female patient came to the hospital with chief complaint of yellowish secretion from ulcer wound at the level of the left foot. Patient was admitted with the suspicion of osteomyelitis, antibiotics based on vancomycin and Zosyn was started. Dr. Perez and Dr. Graham were consulted. Surgery was planned and performed on 03/01/2025. Dr. Graham recommended reducing antibiotics from vancomycin and Zosyn to Augmentin based on cultures. The patient has a history of paroxysmal atrial fibrillation, chads Vasc score: 4 indicative for anticoagulation. Initially the patient was not started on anticoagulation due to planned surgery. After surgery Eliquis started 5 mg twice daily. Physical therapy evaluated patient, post-acute care was recommended. The patient remained hemodynamically stable, reported bowel movements, tolerating diet. Case management actively work for rehab services. [facility] kindly accepted the patient. The patient will be discharged to [facility]. Discharge course: The patient remains hemodynamically stable. The patient will be discharged with the following instructions: Monitor CBC and CMP. Follow-up with the primary care physician within 15 days. Continue antibiotic therapy Augmentin for two weeks. Take Eliquis 5 mg twice daily due to your history of atrial fibrillation. Continue taking culture [id number] mmu twice daily for 30 days. Follow-up with Dr. Graham. Follow-up with Dr. Perez. Continue home medication based on albuterol, atorvastatin 20 mg daily, cholecalciferol, empagliflozin 10 mg daily, fluoxetine 20 mg a.m., 40 mg p.m., gabapentin was reduced to 600 mg daily due to kidney function. Continue taking levothyroxine 50 mcg daily, lisinopril 20 mg daily, metoprolol 25 mg twice daily. We held glimepiride due to episodes of hypoglycemia. Physical exam: Vital Signs Date Time Temp Pulse Resp B/P (MAP) Pulse Ox O2 Delivery O2 Flow Rate FiO2 03/03/25 12:38 13 4/26/25 11:51 97.8 72 153/77 (102) 96 Room Air 03/02/25 08:00 0.0 03/02/25 04:59 96 General: Morbidly obese, Well alert, well oriented, not confused, not agitated, not in acute distress, well cooperated during the physical. HEENT: Conjunctive are pink, sclerae clear, no icterus, pupil is equal in both sides, reactive to light, no ear discharge, no pharyngeal erythema or an edema. Neck: Supple, no JVD, no lymphadenopathy and thyromegaly. Chest: Equal air entry on both lungs, no additional sounds no rhonchi no wheezing at the moment. Cardiovascular: S1-S2 regular sinus rhythm and, regular rate, no gallops, no rubs, no murmurs Abdomen: No visible peristalsis, Bowel sounds present on auscultation, soft, nontender, no guarding, no rigidity Extremities: Absence of five toes in left foot, absence of 5th small toe of the right foot, no pitting edema bilaterally, capillary refill intact, peripheral pulsations are intact on both sides Central Nervous System: No focal neurological deficits, no motor or sensory weakness in all 4 extremities, could move all 4 extremities, 2+ deep tendon reflexes, negative Babinski. Skin: 2 x 2 cm wound at the level of the left upper corner of the left foot, currently with clean dressing covered. *Problems/Diagnosis: (1) Afib Status: Chronic (2) Osteomyelitis Status: Acute (3) Wound Status: Acute (4) Diabetes mellitus Status: Chronic Total Time Spent on D/C: Up to 30 Minutes Date of Service: Mar 03, 2025 Billing Provider: STACI KOCH MD Problem Qualifiers (1) Afib: Atrial fibrillation type: paroxysmal Qualified Codes: I48.0 - Paroxysmal atrial fibrillation KRYSTEN SHANTAMARICARMEN Todd, RES Mar 03, 2025 16:02
--- NOTE | 2025-03-05 11:35 | PATHOLOGY REPORT ---
[facility] [address] [place] [address] SURGICAL PATHOLOGY REPORT CaseNumber: [id number] Surgeon:Jerel Perez M.D. CLINICAL INFORMATION CLINICAL INFORMATION: 4F with left foot ulcer, non-healing wound. DIAGNOSIS DIAGNOSIS: A.BONE, LEFT FOOT, 3RD METATARSAL; BIOPSY - ACUTE OSTEOMYELITIS. - NEGATIVE FOR MALIGNANCY. DIAGNOSIS: B.BONE, LEFT FOOT, 2ND METATARSAL; BIOPSY - FOCAL ACUTE OSTEOMYELITIS. - NEGATIVE FOR MALIGNANCY. DIAGNOSIS: C.BONE, LEFT FOOT, 4TH METATARSAL; BIOPSY - CHRONIC OSTEOMYELITIS. - NEGATIVE FOR MALIGNANCY. DIAGNOSIS: D.BONE, LEFT FOOT, 5TH METATARSAL; BIOPSY - ISOLATED ACUTE OSTEOMYELITIS AND BACKGROUND BONE REMODELING. - NEGATIVE FOR MALIGNANCY. MICROSCOPIC DESCRIPTION A. BONE, LEFT FOOT, 3RD METATARSAL MICROSCOPIC DESCRIPTION: Microscopic examination is performed on one H&E stained slide. Present is flor ne and periosteal tissue with areas of neutrophils and necrosis consistent with acute osteomyelitis. There is no evidence of malignancy. B. BONE, LEFT FOOT, 2ND METATARSAL MICROSCOPIC DESCRIPTION: Microscopic examination is performed on one H&E stained slide. Present is flor ne and periosteal tissue with focal areas of neutrophils and necrosis consistent with acute osteomyel itis. There is no evidence of malignancy. C. BONE, LEFT FOOT, 4TH METATARSAL MICROSCOPIC DESCRIPTION: Microscopic examination is performed on one H&E stained slide. Present is flor ne and periosteal tissue with bone remodeling and focal plasma cells consistent with chronic osteomye litis. There is no evidence of malignancy. D. BONE, LEFT FOOT, 5TH METATARSAL MICROSCOPIC DESCRIPTION: Microscopic examination is performed on one H&E stained slide. Present is flor ne and periosteal tissue with isolated necrosis and neutrophils. There is background bone remodeling present. There is no evidence of malignancy. (bb) GROSS DESCRIPTION A. BONE, LEFT FOOT, 3RD METATARSAL GROSS DESCRIPTION: Received in a container of formalin labeled with the patient's name, number, and " 3rd metatarsal L foot" is a 1.5 x 1.5 x 1.2 cm fragment of vidal bone. The specimen is sectioned and e ntirely submitted as A1 following decalcification. The time at which the specimen was removed was 10 35. The time at which the specimen was placed in formalin was not provided. (meb) B. BONE, LEFT FOOT, 2ND METATARSAL GROSS DESCRIPTION: Received in a container of formalin labeled with the patient's name, number, and " 2nd metatarsal L foot" is a 1.7 x 1.5 x 1 cm segment of vidal bone. The specimen is sectioned and enti rely submitted as B1 following decalcification. The time at which the specimen was removed was 1035. The time at which the specimen was placed in formalin was not provided. (meb) C. BONE, LEFT FOOT, 4TH METATARSAL GROSS DESCRIPTION: Received in a container of formalin labeled with the patient's name, number, and " 4th metatarsal L foot" are two fragments of vidal bone 2 x 1 x 0.5 cm and 1 x 0.2 x 0.6 cm. The specim en is sectioned and entirely submitted as C1 following decalcification. The time at which the specim en was removed was 1035. The time at which the specimen was placed in formalin was not provided. (meb) D. BONE, LEFT FOOT, 5TH METATARSAL GROSS DESCRIPTION: Received in a container of formalin labeled with the patient's name, number, and " 5th metatarsal left foot" is a 2 cm aggregate of irregularly shaped fragments of vidal bone. The speci men is entirely submitted as D1 following decalcification. The time at which the specimen was removed was 1035. The time at which the specimen was placed in formalin was not provided. (meb) Electronically signed by: Dylan Pearce D.O. 03/05/2025 11:02:00 AM
== END 2025-03-03 12:56 | DRG 617 ==
LOC: ER 16:50 → ED HOLD 21:56 → EDBEDREQ 02-27 00:41 → PCU 3S 02-27 01:52
PROVIDERS: ADMIT Internal Medicine; ATTEND Family Medicine
PROC: 0Y6N0ZC Detachment at Left Foot, Partial 3rd Ray, Open Approach (ICD-10-PCS; 2025-03-01)
PROC: 0Y6N0ZD Detachment at Left Foot, Partial 4th Ray, Open Approach (ICD-10-PCS; 2025-03-01)
PROC: 0Y6N0ZF Detachment at Left Foot, Partial 5th Ray, Open Approach (ICD-10-PCS; 2025-03-01)
PROC: 0JXR0ZC Transfer Left Foot Subcutaneous Tissue and Fascia with Skin, Subcutaneous Tissue and Fascia, Open Approach (ICD-10-PCS; 2025-03-01)
PROC: 3E0T3BZ Introduction of Anesthetic Agent into Peripheral Nerves and Plexi, Percutaneous Approach (ICD-10-PCS; 2025-03-01)
PROC: 3E0T33Z Introduction of Anti-inflammatory into Peripheral Nerves and Plexi, Percutaneous Approach (ICD-10-PCS; 2025-03-01)
PROC: 0Y6N0ZB Detachment at Left Foot, Partial 2nd Ray, Open Approach (ICD-10-PCS; principal; 2025-03-01 09:27)
DX: E11.69 Type 2 diabetes mellitus with other specified complication (principal); L03.116 Cellulitis of left lower limb; Z68.43 Body mass index [BMI] 50.0-59.9, adult; M86.8X7 Other osteomyelitis, ankle and foot; G47.33 Obstructive sleep apnea (adult) (pediatric); N18.30 Chronic kidney disease, stage 3 unspecified; E66.01 Morbid (severe) obesity due to excess calories; I48.0 Paroxysmal atrial fibrillation; I12.9 Hypertensive chronic kidney disease with stage 1 through stage 4 chronic kidney disease, or unspecified chronic kidney disease; S91.302A Unspecified open wound, left foot, initial encounter; X58.XXXA Exposure to other specified factors, initial encounter; E11.649 Type 2 diabetes mellitus with hypoglycemia without coma; M60.872 Other myositis, left ankle and foot; E11.621 Type 2 diabetes mellitus with foot ulcer; L97.529 Non-pressure chronic ulcer of other part of left foot with unspecified severity; E11.22 Type 2 diabetes mellitus with diabetic chronic kidney disease; Y93.89 Activity, other specified; Y92.89 Other specified places as the place of occurrence of the external cause; Y99.8 Other external cause status; Z79.82 Long term (current) use of aspirin; Z79.84 Long term (current) use of oral hypoglycemic drugs; Z79.899 Other long term (current) drug therapy; Z88.1 Allergy status to other antibiotic agents
CPT/HCPCS: 36415; 71045; 73620; 73721; 76000; 80048; 80053; 80061; 80202; 81003; 82272; 82948; 83036; 83605; 83735; 83880; 84145; 84443; 85025; 85610; 85651; 85730; 87040; 87070; 87075; 87081; 88305; 88311; 93005; 96365; 96366; 97110; 97162; 97530; 99285; A4618; A6222; A6223; A6258; A6266; A6407; A6446; A6449; A7000; C1713; G0378; J1644; J1815; J2543; J3370; J3490; J7030; J7040; J7120